=== PATIENT | female | born 1970 | race Caucasian/White ===

== ENCOUNTER 2020-01-22 13:45 | Outpatient (CLI) | payer OTHER, SELFPAY ==
--- NOTE | ~2020-01-22 | MR_ITS ---
EXAMINATION: MR brain/brain stem wo/w con EXAM DATE: 01/22/2020 14:47 INDICATION: Visual disturbance. TECHNIQUE: Magnetic resonance imaging (MRI) of the brain/brain stem obtained without contrast. Sagit courtney T1, axial diffusion, gradient echo (T2*), T1, T2, FLAIR sequences obtained. Patient was then inj ected with 20 cc intravenous Multihance contrast. Axial and coronal postcontrast T1 weighted sequence s obtained. There is no prior study for comparison. FINDINGS: There are no areas of restricted diffusion to suggest acute infarction. There is no acute hemorrhage seen on the T2*, a hemosiderin sensitive sequence. No intraparenchymal brain mass. The ve ntricles are normal in size. There are no extra-axial collections. Flow voids are seen in the cereb ral arteries on the T2-weighted sequences consistent with their expected patency. The orbits are unr emarkable. Soft tissue is unremarkable. There are no areas of abnormal enhancement on the postcont rast images. IMPRESSION: Normal brain MRI examination. Reviewed, dictated and finalized at location B.
[2020-01-22 14:22] LABS: Estimated Glomerular Filt Rate 59
== END 2020-01-22 13:46 | disposition home or self-care (01) ==
PROVIDERS: PCP Family Medicine; Visit Provider Nurse Practitioner Family
DX: H53.9 Unspecified visual disturbance (principal)
CPT/HCPCS: 36415; 70553; A9577

== ENCOUNTER 2025-06-05 00:44 | Day surgery (SDC) | payer OTHER, SELFPAY ==
[2025-05-26 13:03] VITALS: BMI 38.2
--- OUTSIDE RECORDS SUMMARY | 2025-06-05 00:48 | XMS_ITS | Encounter Summary ---
Author Organization [facility] Address [address] [place] [address] Phone Care Team Providers Care Equine Manager Name Role Phone Cory Tavera MD Primary Care Provider [phone] Spring Kent APRN, CNP Unavailable Tavo Salinas MD Unavailable [phone] Reason for Visit * Reason Comments Medication Refill Encounter Details Date Type Department Care Team (Late st Contact Info) Description 08/31/2021 Refill [facility] - G[facility] - [place] [address] [place] [address] Joelle Vernon Sherron, PAC [address] [place], [place] [id number] Medication Refill Social History Tobacco Use Types Packs/Day Years Used Date Smoking Tobacco: Never Smokeless Tobacco: Never Alcohol Use Standard Drinks/Week Comments No 0 (1 standard drink = 0.6 oz pur e alcohol) Sexually Active Control Partners Comments Not Currently Comments No Sex and Gender Information Value Date Recorded Sex Assigned at Not on file Legal Sex Female 4:03 AM CRIME PREVENTION WORKER Gender Identity Not on file Sexual Orientation Not on file Occupation Industry Job Start Date Job End Date disabled Not on file Not on file Not on file documented as of this encounter Miscellaneous Notes * Telephone Encounter - Agatha Naylor RN - 09/01/2021 11:10 AM CRIME PREVENTION WORKER Medication refilled and signed per [facility] chronic medication standing order for pediatric and adult patients. E PREVENTION WORKER documented in this encounter Plan of Treatment Not on file documented as of this encounter Visit Diagnoses Diagnosis Acute pancreatitis, unspecified complication status, unspecified pancreatitis type documented in this encounter Care Teams Equine Manager Relationship Specialty Start Date End Date Cory Tavera MD [address] [address] PCP - General Family Medicine 01/24/18 Spring Kent APRN, TOOL TROUBLE SHOOTER [address] [place] [address] Nurse Practitioner Advanced Practice Nurse 02/13/23 Tavo Salinas MD [address] [place] [address] Consulting Physician Gastroenterology 06/22/22 documented as of this encounter
--- OUTSIDE RECORDS SUMMARY | 2025-06-05 00:48 | XMS_ITS | Clinical Summary ---
Author Organization [facility] Address [address] [place] [address] Care Team Providers Care Forest Management Teacher Name Role Phone Cory Tavera MD Primary Care Provider [phone] Source Comments [facility],non-owned Affiliates and Associated Physician Practices is amultiple site organization consisting of ambulatory clinics and hospital sitesin [place], [place], [place] and [place]. This disclosure is being madepursuant to the Care Everywhere program and may not contain all information available regarding this patient. Last updated 18.[facility] [employer] Allergies Active Allergy Reactions Criticality Noted Date Comments Codeine Vomiting 02/15/2024 Amitriptyline 12/19/2012 Clonazepam 12/19/2012 Metoprolol Palpitations Low 03/26/2018 Caused increased blood pressure Caused increased blood pressure Paroxetine Swelling High 12/10/2012 Penicillins Urticaria Medium 12/10/2012 Propranolol Vomiting Low 04/10/2016 Trazodone 12/19/2012 Ondansetron Itching High 09/22/2021 Hives Medications * Be aware that medications may not be up to date on this document. Alwaysverify current medications with the patient. Wheat Dextrin (BENEFIBER DRINK MIX PO) Take by mouth as needed. Active Casanthranol-Do cusate Sodium (STOOL SOFTENER/LAXATI VE PO) Take 1 Cap by mouth as needed Active Blood Pressure Monitor IVANA Use once daily To monitor blood pressure and heart rate DX: Tachycardia R00.0 1 Device 0 6 Active albuterol-iprat ropium (DUO-NEB) 0.5-2.5 (3) MG/3ML nebulizer solution Inhale 3 mL by mouth as needed Active montelukast (SINGULAIR) 10 MG tablet Take 1 (one) tablet by mouth at bedtime Active fenofibrate (LOFIBRA) 160 MG tablet Take 1 (one) tablet by mouth once daily Take with largest meal of the day. Active albuterol HFA (PROVENTIL; VENTOLIN; PROAIR) 108 (90 Base) MCG/ACT inhaler Inhale 2 (two) puffs by mouth as needed Active cetirizine (ZYRTEC) 10 MG tablet Take 1 (one) tablet by mouth once daily Active budesonide-form oterol (SYMBICORT) 160-4.5 MCG/ACT inhaler Inhale 2 (two) puffs by mouth 2 times daily Active tiotropium (SPIRIVA) 18 MCG inhalation capsule Inhale 1 (one) capsule by mouth once daily Active spironolactone (ALDACTONE) 25 MG tablet Take 1 (one) tablet by mouth once daily Active albuterol (PROVENTIL;VENT JULIETA) (2.5 MG/3ML) 0.083% nebulizer solution Inhale by mouth 4 times daily as needed for Shortness of Breath or Wheezing Active ibuprofen (MOTRIN) 800 MG tablet Take 1 (one) tablet by mouth every 6 hours as needed for Pain Active Magnesium 400 MG Active NARCAN 4 MG/0.1ML nasal spray 1 Active pantoprazole EC (Protonix) 40 MG tablet Take 1 (one) tablet by mouth 2 times daily for 60 days 60 tablet 1 4 Active HYDROcodone-talisha taminophen 7.5-325 MG/15ML solution TAKE 30 MILLILITER EVERY 6 HOURS NEEDED 4 Active celecoxib (CeleBREX) 100 MG capsule Take 1 (one) capsule by mouth 2 times daily 3 Active vitamin D, ergocalciferol, (Drisdol) 1.25 MG (07341 UT) capsule TAKE 1 CAP BY MOUTH ONCE A WEEK FOR THE NEXT 36 WEEKS. 4 Active DiabeticaTouch Verio test strip USE TO CHECK BLOOD SUGAR NEEDED UP TO 2 TIMES DAILY FOR HYPER/HYPO GLYCEMIA 4 Active ipratropium (Atrovent) 0.02 % nebulizer solution 0.5 (one-half) mg 3 Active metoclopramide (Reglan) 10 MG tablet Take 1 (one) tablet by mouth 4 Active promethazine (Phenergan) 25 MG tablet Take 1 (one) tablet by mouth every 4 hours as needed 4 Active Active Problems Patient Care Coordination No te Formatting of this note migh t be different from the original. [id number] Problem Noted Date Diagnosed Date Obesity, Class II, BMI 35-39.9 11/16/2021 Chronic low back pain 11/25/2014 Stress incontinence, female 10/03/2013 Well woman exam without gynecological exam 05/09 Asthma 05/09/2013 Resolved Problems Problem Noted Date Diagnosed Date Resolved Date Ear pain, bilateral 10/03/2013 11/26/19 15 Bilateral knee pain 10/03/2013 11/26/19 15 UTI (urinary tract infection) 01/02/2013 11/25/2014 Asthma with acute exacerbation 12/10/2012 05/09/2013 Family History Medical History Relation Name Comments Heart Disease Brother Heart Murmur Cancer - Other Father Esophageal Ca ncer Heart Disease Maternal Grandfather Hypertension Maternal Grandfather Diabetes Maternal Grandmother Heart Disease Maternal Grandmother Hypertension Maternal Grandmother CAD (Coronary Artery Disease) Mother Diabetes Mother Hyperlipidemia Mother Hypertension Mother Cancer - Other Paternal Grandmother Uteri ne Cancer Depression Paternal Grandmother Bipolar Hypertension Paternal Grandmother Mental Illness Paternal Uncle 1 Mental Illness Paternal Uncle 2 Relation Name Status Comments Brother Alive Father (Age 58) Esophageal Cancer Maternal Grandfather Maternal Grandmother Mother Alive Paternal Grandfather Paternal Grandmother Paternal Uncle 1 Paternal Uncle 2 Sister Alive Social History Tobacco Use Types Packs/Day Years Used Date Smoking Tobacco: Never Smokeless Tobacco: Never Alcohol Use Standard Drinks/Week Comments Not Currently 0 (1 standard drink = 0.6 oz pur e alcohol) PHQ-2 Answer Date Recorded Patient Health Questionnaire-2 Score 0 01/10/2024 Comments No Sex and Gender Information Value Date Recorded Sex Assigned at Female 06/18/2021 9:14 PM PIECE DYEING MACHINE TENDER Legal Sex Female 6:16 AM PIECE DYEING MACHINE TENDER Gender Identity Female 06/18/2021 9:14 PM PIECE DYEING MACHINE TENDER Sexual Orientation Not on file Occupation Industry Job Start Date Job End Date Unemployed Not on file Not on file Not on file Last Filed Vital Signs Vital Sign Reading Time Taken Comments Blood Pressure 120/78 01/10/2024 10:01 AM CDT Pulse 86 01/10/2024 10:01 AM CDT Temperature 36 C (96.8 F) 01/10/2024 10:01 AM CDT Respiratory Rate 20 01/10/2024 10:0 1 AM CDT Oxygen Saturation 99% 01/10/2024 10: 01 AM CDT Inhaled Oxygen Concentration - - Weight 104.6 kg (230 lb 9.6 oz) 024 10:01 AM CDT Height 163.8 cm (5' 4.5) 01/10/2024 10 :01 AM CDT Body Mass Index 38.97 01/10/2024 10:01 AM CDT Plan of Treatment Health Maintenance Due Date Last Done Comments COLOGUARD (AGES 45-75) - COLON CA SCREENING [address] COLONOGRAPHY - COLON CA SCREENING 1969 FIT - COLON CA SCREENING 1969 FLEX SIG - COLON CA SCREENING 1969 HIV SCREENING 02/07/1984 HEPATITIS C SCREENING 02/02/1987 DTAP/TDAP/TD VACCINES (1 - Tdap) 02/07/1988 HEPATITIS B VACCINE (1 of 3 - 19+ 3-dose series) 02/07/1988 PNEUMOCOCCAL VACCINE 50+ (1 of 2 - PCV) 02/07/1988 MAMMOGRAM 10/14/2017 10/15/2015, 08/12/2014, 04/22/2013 (Previously completed) ZOSTER VACCINE (1 of 2) 2019 SCREENING FOR DIABETES 09/26/2021 09/22/2015 DEPRESSION SCREENING 07/23/2024 01/10/2024 COVID-19 VACCINE (3 - 2024-2 6 season) 2025 06/13/2022, 09/29/2020 INFLUENZA VACCINE (#1) 2025 COLONOSCOPY - COLON CA SCREENING 02/23/2026 02/23/2021 (Done Outside Per Report) Colorectal Cancer Screening 02/23/2026 LIPID TESTING 12/14/2027 12/13/2022, 03/23 (Previously completed) HIB VACCINE Aged Out No longer eligi ble based on patient's age to complete this topic HPV VACCINE Aged Out No longer eligi ble based on patient's age to complete this topic MENINGOCOCCAL (Group B) VACCINE SHARED DECISION-MAKING Aged Out No longer eligible based on patient's age to complete this topic MENINGOCOCCAL GROUPS A/C/Y/W VACCINE Aged Out No longer eligible based on patient's age to complete this topic Procedures Procedure Name Priority Date/Time Associated Diagnosis Comments MAMMO BILAT SCREENING Routine 10/15/2015 Visit for screening mammogram COMPREHENSIVE METABOLIC PANEL Routine 09/22/2015 3:34 PM PIECE DYEING MACHINE TENDER Elevated liver enzymes from Last 3 Months or Most Recently Relevant to Health Maintenance Results * MAMMO SCREENING DIGITAL IMAGE BILAT (10/15/2015) Anatomical Region Laterality Modality Breast Bilateral Other us Kita Dimas PA-C MAMMO ORDERABLES Final Resul t * (ABNORMAL) COMPREHENSIVE METABOLIC PANEL (09/22/2015 3:34 PM PIECE DYEING MACHINE TENDER) Glucose 107 70 - 125 mg/dL 09/22/2015 5:23 PM [facility] Sodium 143 136 - 145 mmol/L 09/22/2015 5:23 PM [facility] Potassium 4.2 3.4 - 4.5 mmol/L 09/22/2015 5:23 PM [facility] Chloride 107 98 - 107 mmol/L 09/22/2015 5:23 PM [facility] CO2 26 22 - 29 mmol/L 09/22/2015 5:23 PM [facility] Calcium 9.9 8.4 - 10.2 mg/dL 09/22/2015 5:23 PM [facility] Anion Gap 14 10 - 20 mmol/L 09/22/2015 5:23 PM [facility] BUN 16.1 9.8 - 20.1 mg/dL 09/22/2015 5:23 PM [facility] Creatinine 0.91 0.57 - 1.11 mg/dL 09/22/2015 5:23 PM [facility] eGFR by MDRD >60 >60 mL/min/1.7 3m2 09/22/2015 5:23 PM [facility] eGFR by MDRD >60 >60 mL/min/1.7 3m2 09/22/2015 5:23 PM [facility] Alkaline Phosphatase 101 40 - 150 U/L 09/22/2015 5:23 PM [facility] ALT 153(H) 5 - 55 U/L 09/22/2015 5:23 PM [facility] AST 37(H) 5 - 34 U/L 09/22/2015 5:23 PM [facility] Protein Total 7.7 6.4 - 8.3 gm/dL 09/22/2015 5:23 PM [facility] Albumin 4.0 3.5 - 5.0 gm/dL 09/22/2015 5:23 PM [facility] Globulin Total 3.7 2.6 - 4.0 gm/dL 09/22/2015 5:23 PM [facility] Albumin/Globulin Ratio 1.1 0.9 - 1.6 09/22/2015 5:23 PM [facility] Bilirubin Total 0.8 0.2 - 1.2 mg/dL 09/22/2015 5:23 PM [facility] Blood BLOOD SPECIMEN / Unknown Venipuncture / Unknown 09/22/2015 3:34 PM PIECE DYEING MACHINE TENDER 09/22/2015 3:37 PM PIECE DYEING MACHINE TENDER Kita Dimas PA-C LAB - CHEMISTRY ORDERABLES F inal Result Performing Organization Address [facility] de Phone Number [facility] [address] from Last 3 Months or Most Recently Relevant to Health Maintenance Insurance [facility] Care Teams Forest Management Teacher Relationship Specialty Start Date End Date Cory Tavera MD [address] [place] [address] PCP - General 02/25/18
--- OUTSIDE RECORDS SUMMARY | 2025-06-05 00:48 | XMS_ITS | Encounter Summary ---
Author Organization [facility] Address [address] [place] [address] Care Team Providers Care Grinder Mill Operator Name Role Phone Kita Dimas PA-C Primary Care Provider [phone] Isacc Winslow MD Unavailable Unavailabl Amadeo Babcock MD Primary Care Provider [phone] Danilo Garcia MD Unavailable [phone] Cory Tavera MD Primary Care Provider [phone] Danilo Garcia MD Unavailable [phone] Encounter Details Date Type Department Care Team (Late st Contact Info) Description 04/10/2016 Abstract [facility] [address] [place] [address] Isacc Winslow MD Social History Tobacco Use Types Packs/Day Years Used Date Smoking Tobacco: Never Smokeless Tobacco: Never Tobacco Cessation:Counseling Given: Not Answered Alcohol Use Standard Drinks/Week Comments No 0 (1 standard drink = 0.6 oz pur e alcohol) Comments No Sex and Gender Information Value Date Recorded Sex Assigned at Female 11/17/2024 7:33 AM CDT Legal Sex Female 5:16 PM CDT Gender Identity Female 11/17/2024 7:33 AM CDT Sexual Orientation Straight 11/17/2024 7: 33 AM CDT Occupation Industry Job Start Date Job End Date Currently disabled due to lower back Not on file Not on file Not on file 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 [place], [place] [id number] documented as of this encounter Visit Diagnoses Not on filedocumented in this encounter Additional Health Concerns Infection Onset Date Last Indicated Resolved Time COVID-19 Rule Out 06/21/2021 06/21/2021 06/22/2021 8:12 AM STRATEGIC PARTNERSHIP REPRESENTATIVE COVID-19 Rule Out 06/21/2021 06/21/2021 08/11/2021 12:56 PM STRATEGIC PARTNERSHIP REPRESENTATIVE COVID-19 Rule Out 06/03/2023 06/03/2023 06/03/2023 2:38 PM STRATEGIC PARTNERSHIP REPRESENTATIVE COVID-19 Rule Out 06/19/2023 06/19/2023 06/19/2023 2:55 PM STRATEGIC PARTNERSHIP REPRESENTATIVE Respiratory Rule Out 04/20/2025 04/20/2025 025 2:30 PM CDT COVID-19 Rule Out 04/20/2025 04/20/2025 04/20/2025 2:31 PM CDT COVID-19 Confirmed 04/20/2025 04/20/2025 7:55 PM CDT documented as of this encounter Care Teams Grinder Mill Operator Relationship Specialty Start Date End Date Kita Dimas, PADonavanC [facility] [place] [address] PCP - General 02/24/16 03/03/18 Amadeo Bennett MD [address] [place] [address] PCP - General FAMILY PRACTICE 03/04/18 06/16/18 Cory Tavera MD [address] [place] [address] PCP - General FAMILY PRACTICE 06/17/18 Isacc Winslow MD [address] [place] [address] [place] Machine Precision Etcher CARDIOVASCULAR DISEASE 02/24/16 01/22/25 [place] [address] [address] Consulting Physician INTERNAL MEDICINE 03/04/18 1 Danilo Garcia MD [address] [place] [address] Consulting Physician PULMONARY DISEASE 09/17/20 documented as of this encounter
--- OUTSIDE RECORDS SUMMARY | 2025-06-05 00:48 | XMS_ITS | Encounter Summary ---
Author Organization [facility] Address [address] [place] [address] Phone Care Team Providers Care Carbon Sequestration Plant Engineer Name Role Phone Cory Tavera MD Primary Care Provider [phone] Spring Kent APRN, CNP Unavailable Tavo Salinas MD Unavailable [phone] Reason for Visit * Reason Comments Medication Refill Encounter Details Date Type Department Care Team (Late st Contact Info) Description 03/24/2022 Refill [facility] - Gastroenterology - [place] [address] [place] [address] Joelle Vernon Sherron, PAC [address] [place], [place] [id number] Medication Refill Social History Tobacco Use Types Packs/Day Years Used Date Smoking Tobacco: Never Smokeless Tobacco: Never Alcohol Use Standard Drinks/Week Comments No 0 (1 standard drink = 0.6 oz pur e alcohol) Sexually Active Control Partners Comments Not Currently Comments No Sex and Gender Information Value Date Recorded Sex Assigned at Not on file Legal Sex Female 4:03 AM HANDICRAFTS TEACHER Gender Identity Not on file Sexual Orientation Not on file Occupation Industry Job Start Date Job End Date disabled Not on file Not on file Not on file documented as of this encounter Miscellaneous Notes * Telephone Encounter - Agatha Naylor RN - 03/24/2022 10:19 AM CDT Medication refilled and signed per [facility] chronic medication standing order for pediatric and adult patients. documented in this encounter Plan of Treatment Not on file documented as of this encounter Visit Diagnoses Diagnosis Chronic pancreatitis, unspecified pancreatitis type documented in this encounter Care Teams Carbon Sequestration Plant Engineer Relationship Specialty Start Date End Date Cory Tavera MD [address] [address] PCP - General Family Medicine 01/24/18 Spring Kent APRN, CUSTOMS PORT DIRECTOR [address] [place] [address] Nurse Practitioner Advanced Practice Nurse 02/13/23 Tavo Salinas MD [address] [place] [address] Consulting Physician Gastroenterology 06/22/22 documented as of this encounter
--- OUTSIDE RECORDS SUMMARY | 2025-06-05 00:48 | XMS_ITS | Encounter Summary ---
Author Organization [facility] Address [address] [place] [address] Phone Care Team Providers Care Digital Project Coordinator Name Role Phone Cory Tavera MD Primary Care Provider [phone] Spring Kent APRN, CNP Unavailable Tavo Salinas MD Unavailable [phone] Reason for Visit * Reason Comments Medication Refill Encounter Details Date Type Department Care Team (Late st Contact Info) Description 02/13/2022 Refill [facility] [address] [place] [address] Fernie Cramer MD [address] [place] [address] Medication Refill Social History Tobacco Use Types Packs/Day Years Used Date Smoking Tobacco: Never Smokeless Tobacco: Never Alcohol Use Standard Drinks/Week Comments No 0 (1 standard drink = 0.6 oz pur e alcohol) Sexually Active Control Partners Comments Not Currently Comments No Sex and Gender Information Value Date Recorded Sex Assigned at Not on file Legal Sex Female 4:03 AM HEALTH EDUCATION DIRECTOR Gender Identity Not on file Sexual Orientation Not on file Occupation Industry Job Start Date Job End Date disabled Not on file Not on file Not on file documented as of this encounter Miscellaneous Notes * Telephone Encounter - Agatha Naylor RN - 02/14/2022 9:47 AM CDT Pharmacy requesting refill of: Requested Prescriptions Pending Prescriptions Disp Refills ??? pantoprazole (PROTONIX) 40 MG Tablet Delayed Response [Pharmacy Med Name: PANTOPRAZOLE SOD DR 40 MG TAB] 60 Tablet 26 Sig: TAKE 1 TABLET BY MOUTH TWICE A DAY BEFORE MEALS Last fill: 03/14/[address] Cramer Patients last OV with GI: 12/23/2021 Next Office Visit with GI: 06/22/[address] Salinas Pantoprazole order pended, please review. documented in this encounter Plan of Treatment Not on file documented as of this encounter Visit Diagnoses Not on filedocumented in this encounter Care Teams Digital Project Coordinator Relationship Specialty Start Date End Date Cory Tavera MD [address] [id number] PCP - General Family Medicine 01/24/18 Spring Kent APRN, GOLD RECLAIMER [address] [place] [address] Nurse Practitioner Advanced Practice Nurse 02/13/23 Tavo Salinas MD [address] [place] [address] Consulting Physician Gastroenterology 06/22/22 documented as of this encounter
--- OUTSIDE RECORDS SUMMARY | 2025-06-05 00:48 | XMS_ITS | Encounter Summary ---
Author Organization [facility] Address [address] [place] [address] Phone Care Team Providers Care Pulpwood Contractor Name Role Phone Cory Tavera MD Primary Care Provider [phone] Spring Kent APRN, CNP Unavailable Tavo Salinas MD Unavailable [phone] Reason for Visit * Reason Comments Medication Refill Encounter Details Date Type Department Care Team (Late st Contact Info) Description 06/30/2021 [facility]ill [facility] - [place] [address] [place] [address] Joelle Vernon Sherron, PAC [address] [place], [place] [id number] Medication Refill Social History Tobacco Use Types Packs/Day Years Used Date Smoking Tobacco: Never Smokeless Tobacco: Never Alcohol Use Standard Drinks/Week Comments No 0 (1 standard drink = 0.6 oz pur e alcohol) Sexually Active Control Partners Comments Not Currently Comments No Sex and Gender Information Value Date Recorded Sex Assigned at Not on file Legal Sex Female 4:03 AM PIPE SMOKER MACHINE OPERATOR Gender Identity Not on file Sexual Orientation Not on file Occupation Industry Job Start Date Job End Date disabled Not on file Not on file Not on file COVID-19 Exposure Response Date Recorded In the last month, have you been in contact with someone who was confirmed or suspected to have Coronavirus / COVID-19? No / Unsure 06/14/2021 10:36 AM PIPE SMOKER MACHINE OPERATOR documented as of this encounter Miscellaneous Notes * Telephone Encounter - Agatha Naylor RN - 06/30/2021 10:04 AM PIPE SMOKER MACHINE OPERATOR Medication refilled and signed per [facility] chronic medication standing order for pediatric and adult patients. SMOKER MACHINE OPERATOR documented in this encounter Plan of Treatment Not on file documented as of this encounter Visit Diagnoses Diagnosis Acute pancreatitis, unspecified complication status, unspecified pancreatitis type documented in this encounter Care Teams Pulpwood Contractor Relationship Specialty Start Date End Date Cory Tavera MD [address] [address] PCP - General Family Medicine 01/24/18 Spring Kent APRN, CALL CENTER RECRUITER [address] [place] [address] Nurse Practitioner Advanced Practice Nurse 02/13/23 Tavo Salinas MD [address] [place] [address] Consulting Physician Gastroenterology 06/22/22 documented as of this encounter
--- OUTSIDE RECORDS SUMMARY | 2025-06-05 00:48 | XMS_ITS | Encounter Summary ---
Author Organization [facility] Address [address] [place] [address] Phone Care Team Providers Care Operations Officer Trust Department Name Role Phone Cory Tavera MD Primary Care Provider [phone] [place] APRN, CLAMPER Unavailable Tavo Salinas MD Unavailable [phone] Reason for Visit * Reason Comments Medication Refill Encounter Details Date Type Department Care Team (Late st Contact Info) Description 02/25/2023 Refill [facility] - Gastroenter[facility] [address] [place] [address] [place] APRN, CLAMPER [address] [place] [address] Medication Refill Social History Tobacco Use Types Packs/Day Years Used Date Smoking Tobacco: Never Smokeless Tobacco: Never Alcohol Use Standard Drinks/Week Comments No 0 (1 standard drink = 0.6 oz pur e alcohol) Sexually Active Control Partners Comments Not Currently Comments No Sex and Gender Information Value Date Recorded Sex Assigned at Not on file 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 No / Unsure 02/13/2023 1:42 PM CDT documented as of this encounter Miscellaneous Notes * Telephone Encounter - Agatha Naylor RN - 02/26/2023 9:49 AM CDT Per nursing clinical judgement, provider to review and approve the medication(s) order(s) if appropriate. Requested Prescriptions Pending Prescriptions Disp Refills famotidine (PEPCID) 20 MG Tablet [Pharmacy Med Name: FAMOTIDINE 20 MG TABLET] 60 Tablet 1 Sig: TAKE 1 TABLET BY MOUTH TWICE DAILY H2 Antagonists Protocol Passed - 02/25/2023 2:18 PM Passed - Visit with relevant provider in past 12 months or upcoming 90 days Recent Visits Date Type Provider Dept 02/13/23 Office Visit [place] APRN, [facility]IO [facility] 06/22/22 Office Visit Tavo Salinas MD [facility] [place] [facility] Showing recent visits within past 365 days and meeting all other requirements Future Appointments No visits were found meeting these conditions. Showing future appointments within next 90 days and meeting all other requirements documented in this encounter Plan of Treatment Not on file documented as of this encounter Visit Diagnoses Not on filedocumented in this encounter Care Teams Operations Officer Trust Department Relationship Specialty Start Date End Date Cory Tavera MD [address] [place] [id number] PCP - General Family Medicine 01/24/18 [place] APRN, CLAMPER [address] [place] [address] Nurse Practitioner Advanced Practice Nurse 02/13/23 Tavo Salinas MD [address] [place] [address] Consulting Physician Gastroenterology 06/22/22 documented as of this encounter
--- OUTSIDE RECORDS SUMMARY | 2025-06-05 00:48 | XMS_ITS | Clinical Summary ---
Author Organization [facility] Address [address] [place] [address] Phone Care Team Providers Care Market Development Specialist Name Role Phone Cory Tavera MD Primary Care Provider [phone] [place] APRN, ANIMAL WARDEN Unavailable Tavo Salinas MD Unavailable [phone] Allergies Active Allergy Reactions Criticality Noted Date Comments Codeine Vomiting 04/29/2018 Metoprolol Palpitations Low 03/26/2018 Caused increased blood pressure Caused increased blood pressure Morphine And Codeine Vomiting 07/26/2012 Pills only Paroxetine Anaphylaxis,Hives 07/26/2012 Penicillins Hives 07/26/2012 Ondansetron Hcl Hives 04/29/2018 Medications docusate sodium (COLACE) 100 MG Capsule Take 100 mg by mouth 2 times daily as needed. Active cetirizine (ZyrTEC) 10 MG Tablet Take 10 mg by mouth daily as needed. Active albuterol (2.5 MG/3ML) 0.083% IN NEBU 3 mL by Nebulization route every 6 hours as needed for Wheezing. 25 Vial 0 3 Active fenofibrate 160 MG Tablet Take 160 mg by mouth daily. Active MAGNESIUM PO Take 400 mg by mouth daily. Active budesonide-formo terol fumarate (SYMBICORT) 160-4.5 MCG/ACT Aerosol take 2 Puffs by inhalation 2 times daily. Active spironolactone (ALDACTONE) 25 MG Tablet Take 25 mg by mouth daily. Active furosemide (LASIX) 40 MG Tablet Take 40 mg by mouth daily. Active montelukast (SINGULAIR) 10 MG Tablet Take 10 mg by mouth every evening. Active ibuprofen (MOTRIN) 800 MG Tablet Take 800 mg by mouth every 8 hours as needed. Active Narcan 4 MG/0.1ML Liquid TAKE IF NEEDED 1 Active promethazine (PHENERGAN) 25 MG TabletIndication s:Acute pancreatitis, unspecified complication status, unspecified pancreatitis type Take 1 Tablet by mouth every 6 hours as needed for Nausea - 1st line. 30 Tablet 1 Active baclofen (LIORESAL) 10 MG Tablet TAKE 1 TABLET BY MOUTH EVERY DAY AT BEDTIME NEEDED 2 Active Cholecalciferol 23058 UNIT Capsule Take 50,000 Units by mouth. Active ergocalciferol (VITAMIN D) 24832 UNIT Capsule TAKE 1 CAPSULE BY ORAL ROUTE TWICE A WEEK 2 Active ipratropium (ATROVENT) 0.02 % Solution take 0.5 mg by inhalation. Active ipratropium-albu terol (DUO-NEB) 0.5-2.5 (3) MG/3ML Solution take 2.5 mg by inhalation. Active Spiriva HandiHaler 18 MCG Capsule TAKE 2 PUFFS (1CAP) DIRECTED ONCE A DAY 2 Active albuterol 108 (90 Base) MCG/ACT Aerosol Solution take 2 Puffs by inhalation. Active HYDROcodone-acet aminophen (NORCO) 10-325 MG Tablet TAKE 1 TABLET BY MOUTH EVERY 8 HOURS NEEDED 2 Active famotidine (PEPCID) 20 MG Tablet TAKE 1 TABLET BY MOUTH TWICE DAILY 60 Tablet 1 3 Active pantoprazole (PROTONIX) 40 MG Tablet Delayed Response TAKE 1 TABLET BY MOUTH TWICE A DAY BEFORE MEALS 60 Tablet 2 3 Active Active Problems Problem Noted Date Diagnosed Date Idiopathic acute pancreatitis 02/16/2021 NAFLD (nonalcoholic fatty liver disease) 021 Elevated liver enzymes 02/16/2021 Class 3 severe obesity due t o excess calories without serious comorbidity with body mass index (BMI) of 40.0 to 44.9 in adult 02/16/2021 Immunizations Immunization Administration Dates Next Due Covid-19, Mrna, Lnp-s, Bival ent, Moderna, 50 Mcg or 25 mcg dose 06/13/2022 Covid-19, Mrna, Lnp-s, PF, 1 00 mcg/0.5 mL Dose (Moderna) 09/29/2020 Zoster Vaccine Recombinant 06/13/2022,12/09/2021 Family History Medical History Relation Name Comments Cancer Father eophagus Hypertension Mother Cancer Paternal Grandmother OVARIAN Relation Name Status Comments Father Mother Alive Paternal Grandmother Social History Tobacco Use Types Packs/Day Years Used Date Smoking Tobacco: Never Smokeless Tobacco: Never Tobacco Cessation:Counseling Given: Not Answered Alcohol Use Standard Drinks/Week Comments No 0 (1 standard drink = 0.6 oz pur e alcohol) Sexually Active Control Partners Comments Not Currently Comments No Sex and Gender Information Value Date Recorded Sex Assigned at Not on file 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 Gender Identity Not on file Sexual Orientation Not on file Occupation Industry Job Start Date Job End Date disabled Not on file Not on file Not on file Last Filed Vital Signs Vital Sign Reading Time Taken Comments Blood Pressure 134/68 02/13/2023 2:09 PM CDT Pulse 98 02/13/2023 2:09 PM CDT Temperature 36.5 C (97.7 F) 02/13/2023 2:09 PM CDT Respiratory Rate 14 02/13/2023 2:09 PM CDT Oxygen Saturation 98% 02/13/2023 2:09 PM CDT Inhaled Oxygen Concentration - - Weight 111.2 kg (245 lb 1.6 oz) 02/13/2023 2:09 PM CDT Height 165.1 cm (5' 5) 02/13/2023 2:09 PM CDT Body Mass Index 40.79 02/13/2023 2:09 PM CDT Plan of Treatment Health Maintenance Due Date Last Done Comments Mammogram 1969 Hepatitis B Immunization (1 of 3 - 19+ 3-dose series) 02/07/1988 Cologuard 2014 Immunochemical Fecal Occult Blood 2014 Respiratory Syncytial Virus (RSV) Immunization (Adult) (1 - Risk 50-74 years 1-dose series) 2019 Influenza Immunization (#1) 2025 05/15/2023 SARS-COV-2 Immunization (7 - 2025-26 season) 2025 05/24/2023, 06/13/2022, 11/24/2021, Additional history exists Colonoscopy 02/23/2026 02/23/2021, Colorectal Cancer Screening 02/23/2026 Hepatitis C Virus (HCV) Screening Completed 02/16/2021 Zoster Immunization Completed 06/13/2022, DTaP/Tdap/Td Immunization Discontinued 03/20/2023 TdaP Immunization Completed 03/20/2023 Pneumococcal Immunization (50+ years) Completed 04/03/2023 Pneumococcal Immunization Combined Discontinued 04/03/2023 Human Papillomavirus (HPV) Immunization Aged Out No longer eligible based on patient's age to complete this topic Meningococcal Immunization (ACWY) Aged Out No longer eligible based on patient's age to complete this topic Rotavirus Immunization Aged Out No lo nger eligible based on patient's age to complete this topic Procedures Procedure Name Priority Date/Time Associated Diagnosis Comments HEPATITIS PANEL ACUTE (AHP) Routine 02/16/2021 9:09 AM CDT NAFLD (nonalcoholic fatty liver disease) Elevated liver enzymes Acute pancreatitis, unspecified complication status, unspecified pancreatitis type from Last 3 Months or Most Recently Relevant to Health Maintenance Results * HEPATITIS PANEL ACUTE (AHP) (02/16/2021 9:09 AM CDT) HEPATITIS A IGM ANTIBODY NON DETECTED NON DETECTED [facility] [id number] B 02/16/2021 2:50 PM CDT [facility] Comment: IGM Antibodies to HAV not detected. Does not exclude early acute or recovered HAV infection. HEP B CORE AB (IGM) NON DETECTED NON DETECTED [facility] [id number] B 02/16/2021 2:50 PM CDT [facility] Comment:IGM anti-HBC not det ected. Does not exclude the possibility of exposure to or infection with HBV. HEPATITIS B SURFACE ANTIGEN NON DETECTED NON DETECTED [facility] [id number] B 02/16/2021 2:50 PM CDT [facility] Comment:A nonreactive test r esult does not exclude the possibility of exposure to or infection with Hepatitis B virus. A nonreactive test result in individuals with prior exposure to hepatitis B may be due to antigen levels below the detection limit of this assay or lack of antigen reactivity to the antibodies in this assay. hepatitis C antibody 0.09 <1 S/CO [facility] [id number] B 02/16/2021 2:50 PM CDT [facility] Comment: Signal/Cutoff ratio < 0.79 is Nondetected Signal/Cutoff ratio 0.80-0.99 is Grayzone Signal/Cutoff ratio > 0.99 is Detected Supplemental assays are recommended if signal/cutoff ratio is >/=1.00. Signal/cutoff ratio result >/= 5.00 is 97% predictive of positivity for recombinant immunoblot assay (RIBA) and will be reported to the [place] Department of Public [facility] as required. Blood Venipuncture / Unknown 02/16/2021 9:09 AM CDT 02/16/2021 9:17 AM CDT us Joelle Vernon PAC HEMATOLOGY ORDERABLES Fin al Result [facility] [address] [place] [address], from Last 3 Months or Most Recently Relevant to Health Maintenance Insurance MEDICAID [place] Care Teams Market Development Specialist Relationship Specialty Start Date End Date Cory Tavera MD [address] [place] [id number] PCP - General Family Medicine 01/24/18 [place] APRN, ANIMAL WARDEN [address] [place] [address] Nurse Practitioner Advanced Practice Nurse 02/13/23 Tavo Salinas MD [address] [place] [address] Consulting Physician Gastroenterology 06/22/22
--- OUTSIDE RECORDS SUMMARY | 2025-06-05 00:48 | XMS_ITS | Clinical Summary ---
Author Organization [facility] Address [address] [place] [address] Care Team Providers Care Cloth Shrinking Machine Operator Name Role Phone Cory Tavera MD Primary Care Provider [phone] Allergies Active Allergy Reactions Criticality Noted Date Comments Amitriptyline Unknown 12/19/2012 Clonazepam Unknown 12/19/2012 Codeine Vomiting,Nausea And Vomiting,Stomach upset Low 12/10/2012 Metoprolol Other (See comments) Low 03/26/2018 Caused increased blood pressure Morphine Vomiting Low 07/26/2012 Ondansetron Anaphylaxis,Hives,Wh eezi ng High 04/29/2018 Paroxetine Anaphylaxis,Hives,Sw jennifer ng High 07/26/2012 Penicillins Hives,Stomach upset,Urticaria,Vomiting Medium 07/26/2012 Propranolol Vomiting Low 04/10/2016 Trazodone Unknown 12/19/2012 Medications albuterol (PROAIR RESPICLICK) 90 mcg/actuation inhaler Inhale daily as needed Active miscellaneous medical supply misc by Not Applicable route daily 6 Active MAGNESIUM OXIDE ORAL Take 500 mg by mouth daily Active baclofen (LIORESAL) 10 mg tablet 1 Active celecoxib (CeleBREX) 200 mg capsule 1 Active cetirizine (ZyrTEC) 10 mg tablet 1 Active cyclobenzaprine (FLEXERIL) 10 mg tablet Take 1 tablet by mouth 2 (two) times a day as needed 8 Active ergocalciferol (VITAMIN D) 50,000 unit capsule Take by mouth 2 (two) times a week 1 Active fenofibrate (TRIGLIDE) 160 mg tablet Take 160 mg by mouth daily 1 Active fluticasone propion-salmete roL (Wixela Inhub) 250-50 mcg/dose diskus inhaler As directed 9 Active furosemide (LASIX) 40 mg tablet Take 40 mg by mouth daily 1 Active HYDROcodone-talisha taminophen (NORCO) 10-325 mg per tablet 1 Active montelukast (SINGULAIR) 10 mg tablet Take 10 mg by mouth every evening 1 Active omeprazole (PriLOSEC) 40 mg capsule 1 Active spironolactone (ALDACTONE) 25 mg tablet Take 25 mg by mouth daily 1 Active SUMAtriptan (IMITREX) 50 mg tablet TAKE 1 TABLET BY MOUTH ONCE AT ONSET OF MIGRAINE. MAY REPEAT IN 2 HOURS IF NEEDED. MAX 4/24HRS 9 Active Spiriva with HandiHaler 18 mcg per inhalation capsule INHALE 1 CAPSULE VIA HANDIHALER ONCE DAILY AT THE SAME TIME EVERY DAY 1 Active Active Problems Problem Noted Date Diagnosed Date Acute pancreatitis 04/19/2023 Left axis deviation 09/09/2020 Other fatigue 05/27/2019 Shortness of breath 05/27/2019 Class 3 severe obesity in adult 03/26/2018 Tachycardia 03/26/2018 Constipation 05/29/2017 Regurgitation 05/29/2017 Weight gain 05/29/2017 Nausea & vomiting 03/30/2017 Gastroesophageal reflux disease 03/21/2017 Palpitations 04/10/2016 Pressure in chest 04/10/2016 Chronic low back pain 11/25/2014 Stress incontinence, female 10/03/2013 Asthma 05/09/2013 Well woman exam without gynecological exam 05/09 Surgical History Surgery Date Site/Laterality Comments HERNIA REPAIR HYSTERECTOMY CHOLECYSTECTOMY Medical History Medical History Date Comments Irregular heartbeat Hypercholesteremia Fibromyalgia Chronic back pain Asthma Gastric reflux GERD (gastroesophageal reflux disease) Hiatal hernia Kidney stone ADHD (attention deficit hyperactivity disorder) Diabetes mellitus Osteoarthritis Depression Migraines Family History Medical History Relation Name Comments Cancer Father Family history of malignant neoplasm - (Added by TW Conv) Cancer Mother Family history of malignant neoplasm - (Added by TW Conv) Diabetes Mother Family history of diabetes mellitus - (Added by TW Conv) Hypertension Mother Family history of hypertension - (Added by TW Conv) Alcohol abuse Other Arthritis Other Gout Other Heart disease Other Stroke Other Relation Name Status Comments Father Mother Other Social History Tobacco Use Types Packs/Day Years Used Date Smoking Tobacco: Former Personal Safety Answer Date Recorded Getting School Help Needed Not on file 07/04 Comments Unknown Sex and Gender Information Value Date Recorded Sex Assigned at Not on file Legal Sex Female 10:31 PM CDT Gender Identity Female 12/28/2020 6:16 AM CDT Sexual Orientation Not on file Last Filed Vital Signs Vital Sign Reading Time Taken Comments Blood Pressure 124/81 01/03/2021 11:13 AM CDT Pulse 99 01/03/2021 11:13 AM CDT Temperature - - Respiratory Rate - - Oxygen Saturation - - Inhaled Oxygen Concentration - - Weight 112.5 kg (248 lb) 01/03/2021 11:13 AM CDT Height 165.1 cm (5' 5) 01/03/2021 11:13 AM CDT Body Mass Index 41.27 01/03/2021 11:13 AM CDT Plan of Treatment Not on file Insurance [facility] Care Teams Cloth Shrinking Machine Operator Relationship Specialty Start Date End Date Cory Tavera MD PCP - General Family Medicine 01/03/21
--- OUTSIDE RECORDS SUMMARY | 2025-06-05 00:48 | XMS_ITS | Encounter Summary ---
Author Organization [facility] Address [address] [place] [address] Phone Care Team Providers Care System Validation Engineer Name Role Phone Cory Tavera MD Primary Care Provider [phone] [place] APRN, CNP Unavailable Tavo Salinas MD Unavailable [phone] Reason for Visit * Reason Comments Medication Refill Encounter Details Date Type Department Care Team (Late st Contact Info) Description 10/15/2022 Refill [facility] - Gastroenterology - [place] [address] [place] [address] Joelle Vernon Sherron, PAC [address] [place], [place] [id number] Medication Refill Social History Tobacco Use Types Packs/Day Years Used Date Smoking Tobacco: Never Smokeless Tobacco: Never Alcohol Use Standard Drinks/Week Comments No 0 (1 standard drink = 0.6 oz pur e alcohol) Sexually Active Control Partners Comments Not Currently Comments No Sex and Gender Information Value Date Recorded Sex Assigned at Not on file 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 Routing to provider for review and approval due to last provider is notlonger with office. Pantoprazole order pended, please review. documented in this encounter Plan of Treatment Not on file documented as of this encounter Visit Diagnoses Not on filedocumented in this encounter Care Teams System Validation Engineer Relationship Specialty Start Date End Date Cory Tavera MD [address] [address] PCP - General Family Medicine 01/24/18 [place] APRN, MARCO ANTONIO [address] [place] [address] Nurse Practitioner Advanced Practice Nurse 02/13/23 Tavo Salinas MD [address] [place] [address] Consulting Physician Gastroenterology 06/22/22 documented as of this encounter
--- OUTSIDE RECORDS SUMMARY | 2025-06-05 00:48 | XMS_ITS | Clinical Summary ---
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 Name Role Phone Darcie Mcdonald MD Primary Care Provider [phone] Dominic Garcia MD Unavailable [phone] Allergies Active Allergy Reactions Criticality Noted Date Comments Amitriptyline Unknown 08/25/2013 Clonazepam Unknown 08/25/2013 Codeine Nausea and Vomiting 12/10/2012 Metoprolol Other (see comment) 03/26/2018 Caused increased blood pressure Ondansetron Anaphylaxis,Hives High 04/29/2018 Paroxetine Hives,Anaphylaxis High 07/26/2012 Penicillins Vomiting 04/10/2016 Propranolol Vomiting 04/10/2016 Trazodone Unknown 08/25/2013 Medications hydrocodone-talisha taminophen 10-325 MG per tablet Take 1 tablet by mouth every 6 (six) hours as needed for Pain. Active albuterol (2.5 MG/3ML) 0.083% nebulizer solution Inhale 3 mLs (2.5 mg total) into the lungs 2 (two) times daily. 3 Active SYMBICORT 160-4.5 MCG/ACT inhaler Inhale 2 puffs into the lungs 2 (two) times daily. 11 9 Active MAGNESIUM OXIDE OR Take 500 mg by mouth daily. Active montelukast 10 MG tablet Take 1 tablet (10 mg total) by mouth every evening. 11 9 Active ipratropium 0.02 % nebulizer solution Take 2.5 mLs (500 mcg total) by nebulization as needed for Wheezing. 9 Active spironolactone 25 MG tablet Take 1 tablet (25 mg total) by mouth daily. 30 tablet 11 9 Active SPIRIVA HANDIHALER 18 MCG inhalation capsule 1 Active vitamin D2, ergocalciferol, 01928 UNITS capsule TAKE 1 CAPSULE BY MOUTH ONE TIME PER WEEK 1 Active cetirizine 10 MG tablet Take 1 tablet (10 mg total) by mouth daily. 1 Active pantoprazole EC (PROTONIX) 40 MG tablet Take 1 tablet (40 mg total) by mouth 2 (two) times daily. Active fenofibrate 160 MG tablet Take 1 tablet (160 mg total) by mouth daily. Active celecoxib (CELEBREX) 100 MG capsule Take 1 capsule (100 mg total) by mouth 2 (two) times daily. 3 Active albuterol sulfate HFA 108 (90 Base) MCG/ACT inhaler Inhale 2 puffs into the lungs every 4 (four) hours as needed. 3 Active docusate sodium (COLACE) 100 MG capsule Take 1 capsule (100 mg total) by mouth daily. Active metoclopramide (REGLAN) 10 MG tablet Take 1 tablet (10 mg total) by mouth 4 (four) times daily as needed (nausea, vomiting). 30 tablet 4 Active buprenorphine (BUTRANS) 5 MCG/HR PATCH WEEKLY patch Place 1 patch onto the skin every 7 days. 5 Active glimepiride (AMARYL) 1 MG tablet Take 1 tablet (1 mg total) by mouth every morning before breakfast. Active ezetimibe (ZETIA) 10 MG tablet Take 1 tablet (10 mg total) by mouth daily. 30 tablet 3 5 Active Active Problems Problem Noted Date Diagnosed Date Fibromyalgia 11/17/2024 Overview (11/17/2024): Dx 2011 Migraines 11/17/2024 Pancreatitis 05/04/2024 Right axis deviation 12/11/2023 Abdominal pain 12/21/2022 Acute pancreatitis 12/14/2022 Other acute pancreatitis with uninfected necrosi s 12/14/2022 Obesity, Class II, BMI 35-39.9 11/16/2021 Other fatigue 05/27/2019 Shortness of breath 05/27/2019 Tachycardia 03/26/2018 Class 3 severe obesity in adult 03/26/2018 Palpitations 04/10/2016 Pressure in chest 04/10/2016 Asthma 05/09/2013 Overview (11/17/2024): Dx 1994 Resolved Problems Problem Noted Date Diagnosed Date Resolved Date Left axis deviation 09/09/2020 12/11/19 24 Encounters Date Type Department Care Team Description 05/14/2025 9:09 AM CDT - 05/14/2025 11:59 PM CDT Hospital Encounter [facility] CT [address] [place] [address] Sally Cruz NP Discharge Disposition: Home or Self Care (Routine Discharge) 05/14/2025 Travel 05/11/2025 8:21 AM CDT - 05/11/2025 11:59 PM CDT Hospital Encounter [facility] [address] [place] [address] Shanna Olivo FNP Discharge Disposition: Home or Self Care (Routine Discharge) 05/11/2025 [employer] Message [facility] [address] Isela Carrillo MD Lab results 05/11/2025 Orders Only [facility] [address] [place] [address] Shanna Olivo FNP 05/11/2025 Travel 04/20/2025 1:31 PM CDT - 04/20/2025 2:57 PM CDT Emergency [facility] Emergency Services [address] [place] [address] Dominic Myers DO URI Discharge Disposition: Home or Self Care (Routine Discharge) 04/20/2025 Travel 04/01/2025 12:00 PM CDT - 04/01/2025 11:59 PM CDT Hospital Encounter [facility] Diagnostic Imaging [address] [place] [address] Stu Franco MD Discharge Disposition: Home or Self Care (Routine Discharge) 04/01/2025 Travel from Last 3 Months Family History Medical History Relation Comments Alcohol Abuse Father Early Father age 57 Esophageal cancer Father Heart Half-brother murmur since bir th Hypertension Half-brother collapsed lung Half-brother hole in heart Half-brother mva in a wheel chair Half-brother Hypertension Half-sister Heart Maternal Grandfather Hypertension Maternal Grandfather Diabetes Maternal Grandmother Heart Maternal Grandmother Hypertension Maternal Grandmother Arthritis Mother CABG Mother 4v COPD Mother Diabetes Mother Heart Disease Mother Hyperlipidemia Mother Hypertension Mother Sleep Apnea Mother Hypertension Paternal Grandmother Uterine Cancer Paternal Grandmother bipolar disorder Paternal Grandmother Breast Cancer Neg Hx Relation Status Comments Father (Age 58) Half-brother Alive Half-sister Alive Maternal Grandfather Maternal Grandmother Mother Alive Paternal Grandfather Paternal Grandmother Social History Tobacco Use Types Packs/Day Years Used Date Smoking Tobacco: Never Smokeless Tobacco: Never Tobacco Cessation:Counseling Given: Not Answered Alcohol Use Standard Drinks/Week Comments Not Currently 0 (1 standard drink = 0.6 oz pure alcohol) Few glasses per year - not in several years [id number] Health Literacy Answer Date Recor ded How often do you need to hav e someone help you when you read instructions, pamphlets, or other written material from your doctor or pharmacy? Never 05/04/2024 [facility] Utilities Answer Date Recorded In the past 12 months has th e [employer], gas, oil, or water [id number] threatened to shut off services in your home? No 05/04/2024 Humiliation, Afraid, Rape, and Kick questionnair e Answer Date Recorded Within the last year, have y ou been afraid of your partner or ex-partner? No 05/04/2024 Within the last year, have y ou been humiliated or emotionally abused in other ways by your partner or ex-partner? No Within the last year, have y ou been kicked, hit, slapped, or otherwise physically hurt by your partner or ex-partner? No 05/04/2024 Within the last year, have y ou been raped or forced to have any kind of sexual activity by your partner or ex-partner? No 05/04/2024 Social Connection and Isolation Panel Answer Date Recorded In a typical week, how many times do you talk on the phone with family, friends, or neighbors? More than three times a week 05/04/2024 How often do you get togethe r with friends or relatives? More than three times a week 05/04/2024 How often do you attend chur ch or pentecostalism services? Never 05/04/2024 Do you belong to any clubs o r organizations such as taoist groups, unions, fraternal or athletic groups, or school groups? No 05/04/2024 How often do you attend meet ings of the clubs or organizations you belong to? Never 05/04/2024 Are you , , di vorced, , never , or living with a partner? 05/04/2024 AUDIT-C Answer Date Recorded Q1: How often do you have a drink containing alcohol? Never 05/04/2024 Q2: How many drinks containi ng alcohol do you have on a typical day when you are drinking? Patient does not drink Q3: How often do you have si x or more drinks on one occasion? Never 05/04/2024 Overall Financial Resource Strain (CARDIA) Answe r Date Recorded How hard is it for you to pa y for the very basics like food, housing, medical care, and heating? Not hard at all 05/04/2024 [facility] - Occupational Stress Questionnaire Answer Date Recorded Do you feel stress - tense, restless, nervous, or anxious, or unable to sleep at night because your mind is troubled all the time - these days? Only a little 05/04/2024 Exercise Vital Sign Answer Date Recorde d On average, how many days pe r week do you engage in moderate to strenuous exercise (like a brisk walk)? 0 days 12/21/2022 On average, how many minutes do you engage in exercise at this level? 0 min 12/21/2022 Hunger Vital Sign Answer Date Recorded Within the past 12 months, y ou worried that your food would run out before you got the money to buy more. Never true 05/04/20 24 Within the past 12 months, t he food you bought just didn't last and you didn't have money to get more. Never true 05/04/2024 PRAPARE - Transportation Answer Date Re corded In the past 12 months, has l ack of transportation kept you from medical appointments or from getting medications? No 04/22 In the past 12 months, has l ack of transportation kept you from meetings, work, or from getting things needed for daily living? No 05/04/2024 Housing Stability Vital Sign Answer Robin e Recorded In the last 12 months, was t here a time when you were not able to pay the mortgage or rent on time? No 12/21/2022 In the last 12 months, how many places have you lived? 1 12/21/2022 In the last 12 months, was t here a time when you did not have a steady place to sleep or slept in a mcfp (including now)? No 12/21/2022 Housing Stability Vital Sign Answer Robin e Recorded In the last 12 months, was t here a time when you were not able to pay the mortgage or rent on time? No 05/04/2024 In the past 12 months, how m any times have you moved where you were living? 0 05/04/2024 At any time in the past 12 m [facility], were you homeless or living in a mcfp (including now)? 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 Not on file Not on file Not on file Last Filed Vital Signs Vital Sign Reading Time Taken Comments Blood Pressure 124/66 04/20/2025 2:50 PM CDT Pulse 95 04/20/2025 2:50 PM CDT Temperature 36.1 C (97 F) 04/20/2025 2:50 PM CDT Respiratory Rate 18 04/20/2025 2:50 PM CDT Oxygen Saturation 95% 04/20/2025 2:50 PM CDT Inhaled Oxygen Concentration - - Weight 104.3 kg (230 lb) 04/20/2025 1:34 PM CDT Height 165.1 cm (5' 5) 04/20/2025 1:34 PM CDT Body Mass Index 38.27 04/20/2025 1:34 PM CDT Plan of Treatment Upcoming Encounters Date Type Department Care Team (Late st Contact Info) Description 07/29/2025 2:15 PM GORE MAKER Office Visit [facility] [address] [place] [address] [place], [place] [id number] Heather Diaz APRN [facility]. [address] [place], [place] [id number] Health Maintenance Due Date Last Done Comments Colorectal Cancer Screening Colonoscopy (10 Years) 1970 Annual Physical 02/07/1972 Hepatitis A Vaccines (1 of 2 - Risk 2-dose series) 02/07/1988 Hepatitis B Vaccines (1 of 3 - 19+ 3-dose series) 02/07/1988 PHQ-2 (Physician [place]) 07/23/2024 COVID-19 Vaccine ( season) 2025 05/24/2023, 06/13/2022, 06/06/2021, Additional history exists Influenza Adult (#1) 2025 05/15/2023 Mammogram Screening 07/11/2026 07/11/2024, 6 DTaP, Tdap and Td Vaccines (2 - Td or Tdap) 03/20/2033 03/20/2023 Zoster Vaccines Completed 06/13/2022, 12/09/2021 Pneumococcal Vaccine: 50+ Years Completed 04/03/2023 Hepatitis C Completed 11/05/2024, 02/16/2021 Meningococcal B Vaccine Aged Out No l onger eligible based on patient's age to complete this topic Meningococcal Vaccine Aged Out No kim judy eligible based on patient's age to complete this topic RSV Immunizations Under 20 Months Aged Out No longer eligible based on patient's age to complete this topic Procedures Procedure Name Priority Date/Time Associated Diagnosis Comments CT BONE DENSITY AXIAL Routine 05/14/2025 9:37 AM CDT Encounter for screening for osteoporosis HC CHOLESTEROL LDL LEVEL Routine 05/11/2025 8:30 AM CDT VITAMIN B12 / FOLATE Routine 05/11/2025 8:30 AM CDT Weakness generalized Borderline diabetes Nonalcoholic steatohepatitis Mixed hyperlipidemia HC VITAMIN D 25 OH Routine 05/11/2025 8: 30 AM CDT Weakness generalized Borderline diabetes Nonalcoholic steatohepatitis Mixed hyperlipidemia HC THYROID STIMULATING HORM Routine 05/11/2025 8:30 AM CDT Weakness generalized Borderline diabetes Nonalcoholic steatohepatitis Mixed hyperlipidemia HC MICROSOMAL AB-90 Routine 05/11/2025 8 :30 AM CDT Weakness generalized Borderline diabetes Nonalcoholic steatohepatitis Mixed hyperlipidemia HC GLYCOSYLATED HGB Routine 05/11/2025 8 :30 AM CDT Weakness generalized Borderline diabetes Nonalcoholic steatohepatitis Mixed hyperlipidemia HC LIPID PANEL Routine 05/11/2025 8:30 AM CDT Weakness generalized Borderline diabetes Nonalcoholic steatohepatitis Mixed hyperlipidemia HC MAGNESIUM Routine 05/11/2025 8:30 AM CDT Weakness generalized Borderline diabetes Nonalcoholic steatohepatitis Mixed hyperlipidemia HC COMPREHENSIVE METABOLIC PANEL Routine 05/11/2025 8:30 AM CDT Weakness generalized Borderline diabetes Nonalcoholic steatohepatitis Mixed hyperlipidemia HC CBC AUTO W/AUTO DIFF Routine 05/11/2025 8:30 AM CDT Weakness generalized Borderline diabetes Nonalcoholic steatohepatitis Mixed hyperlipidemia XR CHEST PA+LAT STAT 04/20/2025 2:00 PM CDT CORONAVIRUS (COVID 19) STAT 04/20/2025 1:45 PM CDT HC EIA QL INFLUENZA A/B AG STAT 04/20/2025 1:45 PM CDT ECG 12-LEAD Routine 04/20/2025 1:40 PM CDT XR KNEE LT 3V Routine 04/01/2025 12:22 PM CDT Left knee pain HEPATITIS C ANTIBODY Routine 11/05/2024 10:25 AM CDT Hyperlipemia Chronic pancreatitis ([facility] HHS/HCC) Blood glucose elevated Vanishing lung (CMS/HCC HHS/HCC) MG SCREENING W ARCENIO HIMANSHU DIGI Routine 07/11/2024 2:05 PM GORE MAKER Encounter for mammogram to establish baseline mammogram COLONOSCOPY Routine GORE MAKER from Last 3 Months or Most Recently Relevant to Health Maintenance Results * CT BONE DENSITY AXIAL (05/14/2025 9:37 AM CDT) Anatomical Region Laterality Modality Bone Computed Tomogra phy 05/16/2025 3:30 AM CDT Impressions 05/16/2025 3:31 AM CDT IMPRESSION:===== BMD score of 93.1 is compatible with osteopenia Referred By: SALLY CRUZ Interpreted By: Roberto Castillo MD, 05/16/2025 3:30 AM Narrative 05/16/2025 3:31 AM CDT [address] [place] [address] EXAMINATION: CT bone density EXAM DATE/TIME: 05/14/2025 9:23 AM REASON FOR EXAM: encounter for screening Postmenopausal TECHNIQUE: Bone density measurements utilizing Quantitative CT are acquired at L2, L3, and L4 levels. Automated exposure control was utilized for dose reduction. Findings: Mean BMD: 93.1 mg/cc T score: -2.4 Z score: -0.3 ===== Procedure Note Roberto Castillo MD - 05/16/[address] [place] [address] EXAMINATION: CT bone density EXAM DATE/TIME: 05/14/2025 9:23 AM REASON FOR EXAM: encounter for screening Postmenopausal TECHNIQUE: Bone density measurements utilizing Quantitative CT areacquired at L2, L3, and L4 levels. Automated exposure control wasutilized for dose reduction. Findings: Mean BMD: 93.1 mg/cc T score: -2.4 Z score: -0.3 ===== IMPRESSION:===== BMD score of 93.1 is compatible with osteopenia Referred By: SALLY CRUZ Interpreted By: Roberto Castillo MD, 05/16/2025 3:30 AM Sally Cruz GAR[facility] MAKER CT Final Result * (ABNORMAL) VITAMIN B12 / FOLATE (05/11/2025 8:30 AM CDT) Pathologist [facility] VITAMIN B12 S/P/B 279 254 - 1,320 PG/ML 05/11/2025 2:56 PM CDT [facility] FOLATE 24.2(H) 3.1 - 17.5 NG/ML 05/11/2025 2:56 PM CDT [facility] 05/11/2025 8:[address] [facility] Final Result [facility] [address] [place] [address], [place] [phone] * (ABNORMAL) HEMOGLOBIN, GLYCOSYLATED (05/11/2025 8:30 AM CDT) HGB A1C 6.5(H) <5.7 % 05/11/2025 5:42 PM CDT [facility] Comment: ADA GUIDELINES 2010 5.7 TO 6.4% INCREASED RISK OF DIABETES > OR = 6.5% CONSISTENT WITH DIABETES ESTIMATED AVG GLUCOSE 140 mg/dL 05/11/2025 5:42 PM CDT [facility] 05/11/2025 8:30 AM CDT [facility] Pallavi [facility] Final Result Performing Organization Address City/[facility]/ZIP Co de Phone Number [facility] [address] [place] [address], [place] [phone] * THYROID ANTIBODY PANEL (05/11/2025 8:30 AM CDT) THYROID PEROXIDASE MICROSOMAL AB <1 <9 IU/mL 05/14/2025 5:06 AM CDT [facility] THYROGLOBULIN AB <1 <=1 IU/mL 05/14/20 5:06 AM CDT [employer] Comment: Test Performed by [employer], [facility], [address] [place] [address] El Claudio M.D., Ph.D., Director of Laboratories , [facility] [id number] 05/11/2025 8:30 AM CDT [facility] Final Result Performing Organization Address City/[facility]/ZIP Co de Phone Number [employer] [address] [place] [address], [place] [phone] * (ABNORMAL) COMPREHENSIVE METABOLIC PANEL (05/11/2025 8:30 AM CDT) GLUCOSE 226(H) 70 - 99 MG/DL 05/11/2025 9:19 AM CDT [facility] BUN 7 7 - 18 MG/DL 05/11/2025 9:19 AM CDT [facility] CREATININE S/P/B 0.81 0.50 - 1.20 MG/DL 05/11/2025 9:19 AM CDT [facility] SODIUM S/P/B 140 136 - 145 MMOL/L 05/11/2025 9:19 AM CDT [facility] POTASSIUM S/P/B 3.7 3.5 - 5.1 MMOL/L 05/11/2025 9:19 AM CDT [facility] CHLORIDE S/P/B 106 100 - 108 MMOL/L 05/11/2025 9:19 AM CDT [facility] CO2 22.3 21.0 - 32.0 MMOL/L 05/11/2025 9:19 AM CDT [facility] CALCIUM S/P/B 9.0 8.5 - 10.1 MG/DL 05/11/2025 9:19 AM CDT [facility] BILIRUBIN TOTAL S/P/B 0.5 0.2 - 1.2 MG/DL 05/11/2025 9:19 AM CDT [facility] Comment: THIS ASSAY IS NOT RECOMMENDED FOR PATIENTS UNDERGOING TREATMENT WITH ELTROMBOPAG DUE TO THE POTENTIAL FOR FALSELY ELEVATED RESULTS. TOTAL PROTEIN S/P/B 7.0 6.4 - 8.2 G/DL 05/11/2025 9:19 AM CDT [facility] ALBUMIN S/P/B 3.2(L) 3.4 - 5.0 G/DL 05/11/2025 9:19 AM CDT [facility] AST 31 15 - 37 U/L 05/11/2025 9:19 AM CDT [facility] ALT 45 14 - 55 U/L 05/11/2025 9:19 AM CDT [facility] ALKALINE PHOSPHATASE S/P/B 119 50 - 136 U/L 05/11/2025 9:19 AM CDT [facility] ANION GAP 11.7 5.0 - 15.0 MMOL/L 05/11/2025 9:19 AM CDT [facility] BUN CREATININE RATIO 8.6 6 - 26 05/11/2025 9:19 AM CDT [facility] A/G RATIO 0.8(L) 1.0 - 2.5 RATIO 05/11/2025 9:19 AM CDT [facility] GFR ESTIMATE 85(L) >90 ML/MIN/1.7 3 M2 05/11/2025 9:19 AM CDT [facility] Comment: NOTE: eGFR is not calculated for patients <18 years of age. This is an estimated GFR calculation using the new CKD EPI creatinine equation without race and so does not require a correction factor for race. This estimated GFR should not be used for calculating drug doses. 05/11/2025 8:30 [address] [facility] Final Result [facility] [address] [place] [address] [place] [address], * (ABNORMAL) LIPID PANEL (05/11/2025 8:30 AM CDT) CHOLESTEROL 185 <200 MG/DL 05/11/2025 2:56 PM CDT [facility] TRIGLYCERIDES 423(H) <150 MG/DL 05/11/2025 2:56 PM CDT [facility] Comment:REFLEXED DIRECT LDL DUE TO TRIG >400. HDL 30(L) >40.0 MG/DL 05/11/2025 2:56 PM CDT [facility] LDL (CALCULATED) NOT CALCULATED <100 MG/DL 05/11/2025 2:56 PM CDT [facility] Comment: TRIGLYCERIDE >400 INVALIDATES FRACTIONATION. CALCULATED USING THE FRIEDEWALD EQUATION NON HDL CHOLESTEROL 155(H) <130 MG/DL 05/11/2025 2:56 PM CDT [facility] CHOL/HDL RATIO 6.2(H) 0.0 - 4.5 05/11/2025 2:56 PM CDT [facility] VLDL CALCULATION NOT CALCULATED 5 - 55 MG/DL 05/11/2025 2:56 PM CDT [facility] Comment:TRIGLYCERIDE >400 IN VALIDATES FRACTIONATION. LIPID INTERPRETATION 05/11/2025 2:56 PM CDT [facility] Comment: NIH CONCENSUS REPORT RECOMMENDATIONS: ADULT CHILD LOW RISK: CHOLESTEROL <200 <170 TRIGLYCERIDE <150 --- HDL >=60 --- LDL <100 <110 BORDERLINE: CHOLESTEROL 200-239 170-199 TRIGLYCERIDE 150-199 --- HDL 40-59 --- LDL 100-159 110-129 HIGH RISK: CHOLESTEROL >=240 >=200 TRIGLYCERIDE >=200 --- HDL <40 --- LDL >=160 >=130 05/11/2025 8:30 AM CDT [address]anna Olivo [facility] Final Result Performing Organization Address City/[facility]/ZIP Co de Phone Number [facility] [address] [place] [address], [place] [phone] * (ABNORMAL) LIPOPROTEIN, LDL CHOL, DIRECT (05/11/2025 8:30 AM CDT) DIRECT LDL 107(H) <100 MG/DL 05/11/2025 3:08 PM CDT [facility] 05/11/2025 8:30 AM CDT [facility] Final Result [facility] [address] [place] [address], [place] [phone] * CBC W/DIFF AUTOMATED (05/11/2025 8:30 AM CDT) WBC 7.61 4.50 - 11.00 x10'3/uL 05/11/2025 8:42 AM CDT [facility] RBC 4.73 4.00 - 5.20 x10'6/uL 05/11/2025 8:42 AM CDT [facility] HGB 13.4 12.0 - 16.0 G/DL 05/11/2025 8:42 AM CDT [facility] HCT 41.7 38.0 - 48.0 % 05/11/2025 8:42 AM CDT [facility] MCV 88.2 80.0 - 100.0 FL 05/11/2025 8:42 AM CDT [facility] MCH 28.3 26.0 - 34.0 PG 05/11/2025 8:42 AM CDT [facility] MCHC 32.1 31.0 - 37.0 G/DL 05/11/2025 8:42 AM CDT [facility] RDW 13.3 11.6 - 14.8 % 05/11/2025 8:42 AM CDT [facility] PLT 183 130 - 400 x10'3/uL 05/11/2025 8:42 AM CDT [facility] MPV 10.8 7.0 - 12.0 FL 05/11/2025 8:42 AM CDT [facility] CBC COMMENT AUTOMATED RBC MORPHOLOGY AND PLATELET EVALUATION NORMAL 05/11/2025 8:42 AM CDT [facility] NEUTROPHILS % 62.9 40.0 - 74.0 % 05/11/2025 8:42 AM CDT [facility] LYMPHOCYTES % 24.6 14.0 - 46.0 % 05/11/2025 8:42 AM CDT [facility] MONOCYTES % 7.9 4.0 - 13.0 % 05/11/2025 8:42 AM CDT [facility] EOSINOPHILS 3.5 0.0 - 7.0 % 05/11/2025 8:42 AM CDT [facility] BASOPHILS 0.7 0.0 - 3.0 % 05/11/2025 8:42 AM CDT [facility] IMMATURE GRANS % 0.4 0.0 - 0.43 % 05/11/2025 8:42 AM CDT [facility] NRBC % 0.0 % 05/11/2025 8:42 AM CDT [facility] ABS. NEUTROPHILS TOTAL 4.79 1.69 - 7.81 x10'3/uL 05/11/2025 8:42 AM CDT [facility] ABS. LYMPHOCYTES 1.87 0.21 - 5.42 x10'3/uL 05/11/2025 8:42 AM CDT [facility] ABS. MONOCYTES 0.60 0.04 - 1.37 x10'3/uL 05/11/2025 8:42 AM CDT [facility] ABS. EOSINOPHILS 0.27 0.00 - 0.68 x10'3/uL 05/11/2025 8:42 AM CDT [facility] ABS. BASOPHILS 0.05 0.00 - 0.08 x10'3/uL 05/11/2025 8:42 AM CDT [facility] ABS. IMMATURE GRANULOCYTES 0.03 0.00 - 0.06 x10'3/uL 05/11/2025 8:42 AM CDT [facility] ABS. NUCLEATED RBC'S 0.00 0.00 - 0.01 x10'3/uL 05/11/2025 8:42 AM CDT [facility] 05/11/2025 8:30 AM CDT us [facility] Final Result [address] [place] [address], * THYROID STIM HORMONE TSH (05/11/2025 8:30 AM CDT) Pathologist [facility] TSH 2.710 0.358 - 3.74 uIU/ML 05/11/2025 2:56 PM CDT [facility] Comment: HIGH DOSES OF BIOTIN MAY INTERFERE WITH THIS TEST RESULT. CORRELATION TO CLINICAL HISTORY AND PRESENTATION RECOMMENDED. 05/11/2025 8:30 AM CDT [facility] Final Result Performing Organization Address [facility]/ZIP Co de Phone Number [facility] [address] [place] [address], [place] [phone] * (ABNORMAL) VITAMIN D, 25 [place] (05/11/2025 8:30 AM CDT) [facility] VITAMIN D 25 HYDROXY S/P/B 24(L) 30 - 100 NG/ML 05/11/2025 2:19 PM CDT [facility] Comment: INTERPRETATION DEFICIENT <20 INSUFFICIENT 20-29 SUFFICIENT 30-100 05/11/2025 8:[address] [facility] Final Result Performing Organization Address [facility] Co de Phone Number [facility] [address] [place] [address], [place] [phone] * (ABNORMAL) MAGNESIUM (05/11/2025 8:30 AM CDT) [facility] MAGNESIUM 1.7(L) 1.8 - 2.4 MG/DL 05/11/2025 9:19 AM CDT [facility] 05/11/2025 8:30 AM CDT [facility] Final Result Performing Organization Address City/[facility]/ZIP Co de Phone Number [address] [place] [address], [place] * XR CHEST PA+LAT (04/20/2025 2:00 PM CDT) Anatomical Region Laterality Modality Chest Computed Tomogra phy 04/20/2025 2:07 PM CDT Impressions 04/20/2025 2:07 PM CDT =====IMPRESSION:===== 1. No radiographic evidence of active disease the chest. Ordered By: DOMINIC MYERS Interpreted By: Yunior Clinton MD, 04/20/2025 2:07 PM Narrative 04/20/2025 2:07 PM CDT [address] [place] [address] EXAMINATION: PA AND LATERAL CHEST Exam date/time: 04/20/2025 1:47 PM Reason For Exam: Cough Comparison: 02/26/2025 Technique: 2 views. Findings: Heart size within normal limits. Pulmonary vasculature unremarkable. No acute pulmonary parenchymal consolidation. No pleural effusion. No hyperinflation. Procedure Note Yunior Clinton MD - 04/20/[address] [place] [address] EXAMINATION: PA AND LATERAL CHEST Exam date/time: 04/20/2025 1:47 PM Reason For Exam: Cough Comparison: 02/26/2025 Technique: 2 views. Findings: Heart size within normal limits. Pulmonary vasculatureunremarkable. No acute pulmonary parenchymal consolidation. No pleuraleffusion. No hyperinflation. =====IMPRESSION:===== 1. No radiographic evidence of active disease the chest. Ordered By: DOMINIC MYERS Interpreted By: Yunior Clinton MD, 04/20/2025 2:07 PM Dominic Myers DO GENERAL IMAGING Final Result * (ABNORMAL) CORONAVIRUS (COVID 19) (04/20/2025 1:45 PM CDT) CORONAVIRUS SARS COV 2 RNA POSITIVE( AA) NEGATIVE 04/20/2025 2:31 PM CDT [facility] Comment: THE ID NOW COVID-19 2.0 TEST HAS BEEN AUTHORIZED BY THE FDA UNDER EAU FOR USE BY AUTHORIZED LABORATORIES. PERFORMED BY NUCLEIC ACID AMPLIFICATION FOR MOLECULAR QUALITATIVE DETECTION OF SARS-COV-2. ALERT VALUE CALLED TO AND READ BACK BY: HOLDEN [id number] @ 1430 ABS SPECIMEN TYPE NASAL 04/20/2025 1:45 PM CDT [facility] NASAL STRUCTURE / Unknown 04/20/2025 1:45 PM CDT Dominic Myers DO MICROBIOLOGY - GENERAL ORDERAB LES Final Result Performing Organization Address City/[facility]/ZIP Co de Phone Number [facility] [address] [facility] [place] [address], [place] * INFLUENZA A & B (04/20/2025 1:45 PM CDT) SPECIMEN TYPE NASOPHARYNX 04/20/2025 1:45 PM CDT [facility] INFLUENZA A NEGATIVE NEGATIVE 04/20/2025 2:30 PM CDT [facility] INFLUENZA B NEGATIVE NEGATIVE 04/20/2025 2:30 PM CDT [facility] NASAL NASOPHARYNGEAL SWAB / Unknown 04/20/2025 1:45 PM CDT Dominic Myers DO MICROBIOLOGY - GENERAL ORDERAB LES Final Result [facility] [address] [place] [address], [place] * ECG 12 lead (04/20/2025 1:40 PM CDT) 04/20/2025 1:40 PM CDT Narrative [facility] - 04/20/2025 5:15 PM CDT [facility] Test Date: 2025-04-20 Pat Name: SAYRA SAWYER Department: 100 Room: Gender: Female Aging Box Hand: : 1970 Requested By: DOMINIC MYERS Order Number: [id number] Reading MD: Shoaib Martin Measurements Intervals [place] Rate: 96 P: 55 NH: 142 QRS: 92 QRSD: 84 T: 67 QT: 342 QTc: 432 Interpretive Statements SINUS RHYTHM BORDERLINE RIGHT AXIS DEVIATION [QRS AXIS > 90] WARNING: DATA QUALITY MAY AFFECT INTERPRETATION Procedure Note Shoaib Martin MD - 04/20/2025 HFG Test Date: 2025-04-20 Pat Name: SAYRA SAWYER Department: 100 Room: Gender: Female Aging Box Hand: : 1970 Requested By: DOMINIC MYERS Order Number: [id number] Reading MD: Shoaib Martin Measurements Intervals [place] Rate: 96 P: 55 NH: 142 QRS: 92 QRSD: 84 T: 67 QT: 342 QTc: 432 Interpretive Statements SINUS RHYTHM BORDERLINE RIGHT AXIS DEVIATION [QRS AXIS > 90] WARNING: DATA QUALITY MAY AFFECT INTERPRETATION Dominic Myers DO ECG ORDERABLES Final Result Performing Organization Address City/State/[facility] Co de Phone Number [address] [address] * XR KNEE LT 3V (04/01/2025 12:22 PM CDT) Anatomical Region Laterality Modality Knee Computed Tomogra phy 04/01/2025 1:28 PM CDT Impressions 04/01/2025 1:33 PM CDT IMPRESSION: No acute osseous findings. Ordered By: STU FRANCO Interpreted By: Ricardo Leon MD, 04/01/2025 1:28 PM Narrative 04/01/2025 1:33 PM CDT [address] [place] [address] XR KNEE LT 3V INDICATION: left knee pain TECHNIQUE: Weightbearing AP lateral and sunrise views of the left knee. COMPARISON: Left knee radiograph 01/08/2025. FINDINGS: Osseous structures appear intact without convincing evidence for acute fracture or dislocation. Joint spaces are preserved. No significant joint effusion. No aggressive osseous lesion. No radiopaque foreign body. Procedure Note Ricardo Leon MD - 04/01/[address] [place] [address] XR KNEE LT 3V INDICATION: left knee pain TECHNIQUE: Weightbearing AP lateral and sunrise views of the left knee. COMPARISON: Left knee radiograph 01/08/2025. FINDINGS: Osseous structures appear intact without convincing evidence for acutefracture or dislocation. Joint spaces are preserved. No significant jointeffusion. No aggressive osseous lesion. No radiopaque foreign body. IMPRESSION: No acute osseous findings. Ordered By: STU FRANCO Interpreted By: Ricardo Leon MD, 04/01/2025 1:28 PM Stu Franco MD GENERAL IMAGING Final Result * HEPATITIS C ANTIBODY (11/05/2024 10:25 AM CDT) HEPATITIS C AB NON-REACTI VE NON-REACTI VE 11/05/2024 3:39 PM CDT [facility] 11/05/2024 10:2 5 AM CDT Noe Carmichael NP LABORATORY Final Result [facility] [address] [place] [address], [place] [phone] * MG SCREENING W ARCENIO HIMANSHU DIGI (07/11/2024 2:05 PM GORE MAKER) Anatomical Region Laterality Modality Breast Bilateral Mammography 07/11/2024 3:55 PM GORE MAKER Impressions 07/11/2024 3:58 PM GORE MAKER ===== IMPRESSION: ===== 1. Stable mammographic appearance with no new findings to suggest malignancy in either breast. Assessment: ACR BI-RADS 1 - NEGATIVE Recommendation: 1:Routine Screening Bilateral Comments: Ordered By: DARCIE MCDONALD Interpreted By: Jovan Rutherford, 07/11/2024 3:55 PM Narrative 07/11/2024 3:58 PM GORE MAKER [address] [place] [address] EXAMINATION: Digital bilateral screening mammogram with 3-D tomosynthesis EXAM DATE/TIME: 07/11/2024 1:51 PM REASON FOR EXAM: Routine screening Breast reduction at age 25. COMPARISON: 12/24/2017. 07/03/2019 Technique: Digital screening mammography of both breasts was performed in addition to 3-D Tomosynthesis technique. This study was read with the assistance of a computer-aided detection system. Tissue density: The breasts are almost entirely fatty. Findings: There is no new focal asymmetry, dominant mass lesion, area of skin thickening, or cluster of suspicious appearing calcifications in either breast to suggest malignancy. Stable benign lymph node in upper outer quadrant of the right breast Darcie Mcdonald MD MAMMO Final Result * Colonoscopy ( GORE MAKER) Narrative [facility] TO EPIC CONVERSION - GORE MAKER Documented hx of procedure Procedure Note Adama Clark MD - 05/26/2018 Documented hx of procedure us Generic Conversion Md [facility] PROCEDURE ORDERABLES Final Result [facility] TO EPIC CONVERSION from Last 3 Months or Most Recently Relevant to Health Maintenance Insurance [place] [employer] Advance Directives * Full Code (Latest Code Status on File) Date Activated Date Inactivated Comments 05/04/2024 10:55 PM 05/07/2024 11:54 AM * Full Code Date Activated Date Inactivated Comments 12/21/2022 6:47 PM 12/24/2022 5:27 PM * Full Code Date Activated Date Inactivated Comments 12/14/2022 7:31 AM 12/18/2022 1:14 PM Care Teams Glass Production Machine Operator Relationship Specialty Start Date End Date Darcie Mcdonald MD [address] [place] [address] PCP - General FAMILY PRACTICE 06/17/18 Dominic Garcia MD [address] [place] [address] Consulting Physician PULMONARY DISEASE 09/17/20
--- OUTSIDE RECORDS SUMMARY | 2025-06-05 00:48 | XMS_ITS | Encounter Summary ---
Author Organization [facility] Address [address] [place] [address] Care Team Providers Care Receiving Checker Name Role Phone Isacc Winslow MD Unavailable [facility] Cory Pinto MD Primary Care Provider + [phone] Danilo Garcia MD Unavailable [phone] Encounter Details Date Type Department Care Team (Late Contact Info) Description 09/28/2020 [facility] [address] [place] [address] Abstract, Doc [facility] Social History Tobacco Use Types Packs/Day Years [...] Not on file Not on file 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 [address] [place], [place] [id number] documented as of this encounter Procedures Procedure Name Priority Date/Time Associated Diagnosis Comments CMP (ABSTRACTED LAB) Routine 09/14/2020 CBC W/ MANUAL DIFF (OUTSIDE) Routine 09/14/2020 LIPID PANEL Routine 09/14/2020 THYROID STIM HORMONE TSH Routine 09/14/2020 documented in this encounter Results * THYROID STIM HORMONE, TSH (09/14/2020) TSH 0.934 09/14/2020 us Cory Taevra MD LABORATORY Final Result * LIPID PANEL (09/14/2020) CHOLESTEROL 137 HDL 44 TRIGLYCERIDES 84 LDL (CALCULATED) 134 09/14/2020 us Cory Tavera MD LABORATORY Final Result * CMP (ABSTRACTED LAB) (09/14/2020) SODIUM S/P/B 141 POTASSIUM S/P/B 4.0 CHLORIDE S/P/B 105 CO2 23.4 BUN 11 CREATININE S/P/B 1.0 0.5 - 1.0 EGFR AFR. AMER. >60 <=90 EGFR NON-AFR. AMER. >60 <=90 CALCIUM S/P/B 9.4 GLUCOSE 123 mg/dL TOTAL PROTEIN S/P/B 7.9 ALBUMIN S/P/B 3.6 3.5 - 5.0 AST 50 ALT 94 ALKALINE PHOSPHATASE S/P/B 97 BILIRUBIN TOTAL S/P/B 0.7 09/14/2020 us Doc [facility] Abstract LAB-OUTSIDE/ABSTRACTED Final Result * CBC W/ MANUAL DIFF (OUTSIDE) (09/14/2020) WBC 8.0 RBC 5.44 HGB 14.8 HCT 46.2 MCV 84.9 MCH 27.2 MCHC 32.0 RDW 14.4 PLT 260 MPV 10.50 NEUTROPHILS % 65.5 LYMPHOCYTES % 22.7 MONOCYTES % 7.0 EOSINOPHILS % 3.5 BASOPHILS % 0.9 ABS. NEUTROPHILS 5.3 ABS. LYMPHOCYTES 1.8 09/14/2020 Cory Tavera MD LABORATORY Final Result documented in this encounter Visit Diagnoses Not on filedocumented in this encounter Additional Health Concerns Infection Onset Date Last Indicated Resolved Time COVID-19 Rule Out 06/21/2021 06/21/2021 06/22/2021 8:12 AM BACK WINDER COVID-19 Rule Out 06/21/2021 06/21/2021 08/11/2021 12:56 PM BACK WINDER COVID-19 Rule Out 06/03/2023 06/03/2023 06/03/2023 2:38 PM BACK WINDER COVID-19 Rule Out 06/19/2023 06/19/2023 06/19/2023 2:55 PM BACK WINDER Respiratory Rule Out 04/20/2025 04/20/2025 025 2:30 PM CDT COVID-19 Rule Out 04/20/2025 04/20/2025 04/20/2025 2:31 PM CDT COVID-19 Confirmed 04/20/2025 04/20/2025 7:55 PM CDT documented as of this encounter Care Teams Receiving Checker Relationship Specialty Start Date End Date Cory Tavera MD [address] [place] [address] PCP - General FAMILY PRACTICE 06/17/18 Isacc Winslow MD [place] Braid Cutter CARDIOVASCULAR DISEASE 02/24/16 01/22/25 Danilo Garcia MD [address] [place] [address] Consulting Physician PULMONARY DISEASE 09/17/20 documented as of this encounter
--- OUTSIDE RECORDS SUMMARY | 2025-06-05 00:48 | XMS_ITS | Encounter Summary ---
Author Organization [facility] Address [address] [place] [address] Phone Care Team Providers Care Spooler Operator Name Role Phone Cory Tavera MD Primary Care Provider [phone] Spring Kent APRN, STEEL SAMPLER Unavailable Tavo Salinas MD Unavailable [phone] Reason for Visit * Reason Comments Medication Refill Encounter Details Date Type Department Care Team (Late st Contact Info) Description 04/08/2023 Refill [facility] - Gastroenterology [facility] [address] [place] [address] Spring Kent APRN, STEEL SAMPLER [address] [place] [address] Medication Refill Social History Tobacco Use Types Packs/Day Years Used Date Smoking Tobacco: Never Smokeless Tobacco: Never Alcohol Use Standard Drinks/Week Comments No 0 (1 standard drink = 0.6 oz pur e alcohol) Sexually Active Control Partners Comments Not Currently Comments No Sex and Gender Information Value Date Recorded Sex Assigned at Not on file Legal Sex Female 4:03 AM ORDER CHECKER PACKER PROCESSER Gender Identity Not on file Sexual Orientation Not on file Occupation Industry Job Start Date Job End Date disabled Not on file Not on file Not on file documented as of this encounter Miscellaneous Notes * Telephone Encounter - Agatha Naylor RN - 04/09/2023 12:54 PM CDT Medication refilled and signed per [facility] chronic medication standing order for pediatric and adult patients. documented in this encounter Plan of Treatment Not on file documented as of this encounter Visit Diagnoses Not on filedocumented in this encounter Care Teams Spooler Operator Relationship Specialty Start Date End Date Cory Tavera MD [address] [address] PCP - General Family Medicine 01/24/18 Spring Kent APRN, STEEL SAMPLER [address] [place] [address] Nurse Practitioner Advanced Practice Nurse 02/13/23 Tavo Salinas MD [address] [place] [address] Consulting Physician Gastroenterology 06/22/22 documented as of this encounter
--- OUTSIDE RECORDS SUMMARY | 2025-06-05 00:48 | XMS_ITS | Encounter Summary ---
Author Organization [facility] Address [address] [place] [address] Care Team Providers Care Sales And Marketing Assistant Name Role Phone Judie Kita Rosen PA-C Primary Care Provider + [phone] Isacc Winslow MD Unavailable UnavailEitan Lee MD Primary Care Provider [phone] Amadeo Bennett MD Primary Care Provider [phone] Danilo Garcia MD Unavailable [phone] Cory Tavera MD Primary Care Provider + [phone] Danilo Garcia MD Unavailable [phone] Encounter Details Date Type Department Care Team (Late st Contact Info) Description 10/06/[address] [facility] Conversion [address] [place] [address] , Generic Conversion, Social History Tobacco Use Types Packs/Day Years Used Date Smoking Tobacco: Never Assessed Comments Unknown Sex and Gender Information Value Date Recorded Sex Assigned at Female 11/17/2024 7:33 AM CDT Legal Sex Female 5:16 PM CDT Gender Identity Female 11/17/2024 7:33 AM CDT Sexual Orientation Straight 11/17/2024 7: 33 AM CDT documented as of this encounter Plan of Treatment Upcoming Encounters Date Type Department Care Team (Late Contact Info) Description 07/29/2025 2:15 PM HOSPITAL SALES REPRESENTATIVE Office Visit [facility], [address] [address] Heather Diaz, TECHNICAL OPERATIONS MANAGER [address] [place] [address] documented as of this encounter Visit Diagnoses Not on filedocumented in this encounter Additional Health Concerns Infection Onset Date Last Indicated Resolved Time COVID-19 Rule Out 06/21/2021 06/21/2021 06/22/2021 8:12 AM HOSPITAL SALES REPRESENTATIVE COVID-19 Rule Out 06/21/2021 06/21/2021 08/11/2021 12:56 PM HOSPITAL SALES REPRESENTATIVE COVID-19 Rule Out 06/03/2023 06/03/2023 06/03/2023 2:38 PM HOSPITAL SALES REPRESENTATIVE COVID-19 Rule Out 06/19/2023 06/19/2023 06/19/2023 2:55 PM HOSPITAL SALES REPRESENTATIVE Respiratory Rule Out 04/20/2025 04/20/2025 2:30 PM CDT COVID-19 Rule Out 04/20/2025 04/20/2025 04/20/2025 2:31 PM CDT COVID-19 Confirmed 04/20/2025 04/20/2025 7:55 PM CDT documented as of this encounter Care Teams Sales And Marketing Assistant Relationship Specialty Start Date End Date Kita Dimas, PA-C [address] [place] [phone] PCP - General 02/24/16 03/03/18 Eitan Rose MD [address] [place] [phone] PCP - General 10/15/13 02/23/16 Amadeo Bennett MD [address] [place] [phone] PCP - General FAMILY PRACTICE 03/04/18 06/16/18 Cory Tavera MD [address] [place] [address] PCP - General FAMILY PRACTICE 06/17/18 Isacc iWnslow MD [address] [place] [address] [place] Software Quality Assurance Engineer CARDIOVASCULAR DISEASE 02/24/16 01/22/25 [place] [address] [address] Consulting Physician INTERNAL MEDICINE 03/04/18 1 Danilo Garcia MD [address] [place] [address] Consulting Physician PULMONARY DISEASE 09/17/20 documented as of this encounter
[2025-06-05 10:06] VITALS: BP 131/80; PULSE 108; RESP 20; TEMP 36.2; O2SAT 98; BMI 42.0
[2025-06-05] MEDS: LACTATED RINGERS 1,000 ML 150 ML IV CONT (10:17)
--- NOTE | 2025-06-05 10:33 | WPDANESEPPF ---
Anes - Initial Pre Proc Eval Procedure: Operation Date: 06/05/25 11:30 Proposed Procedures p Esophagogastroduodenoscopy EGD - Phill Hernandez MD Date/Time: 06/05/25 10:33 Surgeon: Phill Hernandez MD Pre Op Diagnosis: Right upper quadrant pain Patient Data Age: 55 Gender: F Height: 1.65 m Weight: 114.7 kg Last Vital Signs Temp 36.2 C L 06/05/25 10:06 Pulse 108 H 06/05/25 10:06 Resp 20 06/05/25 10:06 BP 131/80 06/05/25 10:06 Pulse Ox 98 06/05/25 10:06 O2 Del Method Room Air 06/05/25 10:06 Allergies Allergy/AdvReac Type Severity Reaction Status Date / Time ondansetron (From Zofran) Allergy Intermediate Anaphylactic Verified 06/05/25 10:05 Shock paroxetine (From Paxil) Allergy Mild Hives Verified 06/05/25 10:05 codeine AdvReac Mild Nausea Verified 06/05/25 10:05 Penicillins AdvReac Mild Vomiting Verified 06/05/25 10:05 Home Medications ?Medication ?Instructions ?Recorded ?Confirmed ?Type albuterol sulfate 2.5 mg/0.5 mL 2.5 mg inhalation Q4-6H PRN 07/01/24 05/26/25 History solution for nebulization shortness of breath or wheezing budesonide-formoterol HFA 80 1 inh inhalation TID 07/01/24 06/05/25 History mcg-4.5 mcg/actuation aerosol inhaler (Symbicort) docusate sodium 100 mg capsule 100 mg PO BID 07/01/24 06/05/25 History (Colace) ergocalciferol (vitamin D2) 1,250 1,250 mcg PO 2XW 07/01/24 06/05/25 History mcg (50,000 unit) capsule fenofibrate 160 mg tablet 160 mg PO DAILY 07/01/24 06/05/25 History hydrocodone 10 mg-acetaminophen 1 tablet PO TID PRN pain 07/01/24 05/26/25 History 325 mg tablet magnesium oxide 400 mg PO DAILY 07/01/24 06/05/25 History montelukast 10 mg tablet 10 mg PO DAILY 07/01/24 06/05/25 History glimepiride 1 mg tablet 2 mg PO QAM 04/16/25 06/05/25 History pantoprazole 40 mg tablet,delayed 40 mg PO BID #60 tabs 05/06/25 06/05/25 Rx release atomoxetine 25 mg capsule 25 mg PO DAILY 05/26/25 06/05/25 History celecoxib 100 mg capsule 100 mg PO Q12H PRN pain 05/26/25 05/26/25 History cetirizine 10 mg tablet 10 mg PO DAILY 05/26/25 06/05/25 History empagliflozin 25 mg tablet 25 mg PO DAILY 05/26/25 06/05/25 History (Jardiance) ezetimibe 10 mg tablet 10 mg PO DAILY 05/26/25 06/05/25 History promethazine 25 mg tablet 25 mg PO Q4-6H PRN nausea and 05/26/25 05/26/25 History vomiting spironolactone 25 mg tablet 25 mg PO DAILY 05/26/25 06/05/25 History Laboratory Tests 06/05/25 10:15 POC Capillary Glucose 149 H mg/dl (65-105) Patient hx anesthesia problems: none Family hx anesthesia problems: none Results Review: All pre-operative results and documents have been reviewed as part of the pre-operative evaluation. [facility] Past Medical History Medical History (Updated 06/05/25 @ 10:33 by Vincent Agarwal MD) Morbid obesity GERD (gastroesophageal reflux disease) PTSD (post-traumatic stress disorder) Chronic back pain Asthma Social History Social History Smoking status: Never smoker Alcohol intake: never Substance use: never Substance use type: does not use Living arrangements: alone Spiritual care concerns: No Anes - Eval Final PreProcedure Day of Procedure 06/05/25 10:33 Patient weight: morbidly obese Heart: regular rate and rhythm Lungs: clear to auscultation Airway: Mallampati scale class III and special considerations poor opening Neurological: alert and oriented Last oral intake: >/= 8 hours ASA classification: III Emergent: no Anesthetic plan: proceed Anesthesia type and monitoring: general GIVS and standard monitoring Results Review: All pre-operative results and documents have been reviewed as part of the pre-operative evaluation. Informed Consent: The patient's anesthetic plan and its attendant risks and benefits were discussed with the patient/family/POA. Questions were solicited and answers provided to the satisfaction of the patient/family/POA.
--- NOTE | 2025-06-05 10:44 | PM.HPGS ---
History of Present Illness History of Present Illness Consent: Risks, benefits, and alternatives have been discussed and questions answered. Patient agrees to proceed with procedure. Chief complaint: Right upper quadrant pain Narrative: Sayra Fitch is a 55 year old female with nausea, dyspepsia, gerd on pantoprazole, h/o cholecystectomy Review of Systems Review of Systems: All systems reviewed & are unremarkable except as noted in HPI and below PMFSH Past Medical History Medical History (Updated 06/05/25 @ 10:45 by Phill Hernandez MD) Morbid obesity GERD (gastroesophageal reflux disease) PTSD (post-traumatic stress disorder) Chronic back pain Asthma Social History Social History Smoking status: Never smoker Alcohol intake: never Substance use: never Substance use type: does not use Living arrangements: alone Spiritual care concerns: No Meds Home Medications and Allergies Home Medications ?Medication ?Instructions ?Recorded ?Confirmed ?Type albuterol sulfate 2.5 mg/0.5 mL 2.5 mg inhalation Q4-6H PRN 07/01/24 05/26/25 History solution for nebulization shortness of breath or wheezing budesonide-formoterol HFA 80 1 inh inhalation TID 07/01/24 06/05/25 History mcg-4.5 mcg/actuation aerosol inhaler (Symbicort) docusate sodium 100 mg capsule 100 mg PO BID 07/01/24 06/05/25 History (Colace) ergocalciferol (vitamin D2) 1,250 1,250 mcg PO 2XW 07/01/24 06/05/25 History mcg (50,000 unit) capsule fenofibrate 160 mg tablet 160 mg PO DAILY 07/01/24 06/05/25 History hydrocodone 10 mg-acetaminophen 1 tablet PO TID PRN pain 07/01/24 05/26/25 History 325 mg tablet magnesium oxide 400 mg PO DAILY 07/01/24 06/05/25 History montelukast 10 mg tablet 10 mg PO DAILY 07/01/24 06/05/25 History glimepiride 1 mg tablet 2 mg PO QAM 04/16/25 06/05/25 History pantoprazole 40 mg tablet,delayed 40 mg PO BID #60 tabs 05/06/25 06/05/25 Rx release atomoxetine 25 mg capsule 25 mg PO DAILY 05/26/25 06/05/25 History celecoxib 100 mg capsule 100 mg PO Q12H PRN pain 05/26/25 05/26/25 History cetirizine 10 mg tablet 10 mg PO DAILY 05/26/25 06/05/25 History empagliflozin 25 mg tablet 25 mg PO DAILY 05/26/25 06/05/25 History (Jardiance) ezetimibe 10 mg tablet 10 mg PO DAILY 05/26/25 06/05/25 History promethazine 25 mg tablet 25 mg PO Q4-6H PRN nausea and 05/26/25 05/26/25 History vomiting spironolactone 25 mg tablet 25 mg PO DAILY 05/26/25 06/05/25 History Allergies Allergy/AdvReac Type Severity Reaction Status Date / Time ondansetron (From Zofran) Allergy Intermediate Anaphylactic Verified 06/05/25 10:05 Shock paroxetine (From Paxil) Allergy Mild Hives Verified 06/05/25 10:05 codeine AdvReac Mild Nausea Verified 06/05/25 10:05 Penicillins AdvReac Mild Vomiting Verified 06/05/25 10:05 Vital Signs Vital Signs - 24 hr 06/05/25 10:06 Temperature 97.2 F L Pulse Rate 108 H Respiratory Rate 20 Blood Pressure 131/80 Pulse Oximetry 98 Oxygen Delivery Room Air Exam Const: General: comfortable and no acute distress Nutritional Appearance: obese Orientation/consciousness: patient oriented x3 Resp: Auscultation: clear to auscultation bilaterally Cardio: Rate: regular rate Rhythm: regular rhythm GI: Inspection: non-distended GI Palp: Yes Soft to palpation Skin: General skin exam: normal color Extrem: General: normal to inspection Psych: Mental Status: mental status grossly normal Assessment and Plan Assessment and plan (1) Epigastric pain: Code(s): R10.13 - Epigastric pain Status: Acute Assessment and Plan: egd with bx (2) GERD (gastroesophageal reflux disease): Code(s): K21.9 - Gastro-esophageal reflux disease without esophagitis Status: Acute
--- NOTE | 2025-06-05 10:48 | S_PTH ---
PATIENT: Sayra Fitch LOC: [facility]#:[id number] AGE/SX: 55/F ROOM: RE06/05/[address]: Phill Hernandez MD : 1970 BED: DIS: 06/05/2025 SPEC #: [id number] RECD: 06/05/25 13:31 STATUS: OSMAN REMeena #: [id number] SKYE: 06/05/25 10:[address]: Phill Hernandez DEPT: [facility] Surgical RECD BY: Kianna Maria ENTERED: 06/05/25 13:32 SP TYPE: Surgical OTHR DR: Cory Tavera MD Tissues: A - Small Bowel Bx B - Gastric Biopsy C - Esophageal Biopsy Procedures: Hematoxylin and Eosin Stain Gross and Microscopic Level 4
[2025-06-05 10:50] VITALS: BP 124/77; PULSE 89; RESP 24; O2SAT 95
[2025-06-05 11:00] VITALS: BP 122/74; PULSE 88; RESP 22; O2SAT 96
[2025-06-05 11:10] VITALS: BP 120/77; PULSE 90; RESP 20; O2SAT 97
== END 2025-06-05 11:23 | disposition home or self-care (01) ==
PROVIDERS: PCP Family Medicine; Referring Provider Nurse Practitioner Family; Visit Provider Internal Medicine Gastroenterology
PROC: 0DJ08ZZ Inspection of Upper Intestinal Tract, Via Natural or Artificial Opening Endoscopic (ICD-10-PCS; CPT 43239; principal; 2025-06-05 11:30)
DX: K21.9 Gastro-esophageal reflux disease without esophagitis (principal); K44.9 Diaphragmatic hernia without obstruction or gangrene; E66.01 Morbid (severe) obesity due to excess calories; Z68.41 Body mass index [BMI] 40.0-44.9, adult; Z79.84 Long term (current) use of oral hypoglycemic drugs
CPT/HCPCS: 43239; 82948; 88305; J2704; J7120